=== PATIENT | female | born 1955 | race Caucasian/White ===

== ENCOUNTER 2017-05-17 16:58 | Observation (INO) ==
[2017-05-17 17:36] LABS: Basophils % 0.3 %; Eosinophils # 0.2 K/mcL (0.0-0.6); Eosinophils % 1.8 %; Hematocrit 38.6 % (35.3-44.9); Hemoglobin 13.5 g/dL (11.5-15.4); Immature Granulocytes % 0.5 % (0-4); Immature Platelets 1.9 % (1.1-6.1); Lymphocytes # 1.9 K/mcL (0.6-4.6); Lymphocytes % 20.6 %; Mean Corpuscular Hemoglobin 30.3 pg (28.0-33.3); Mean Corpuscular Volume 86.7 fL (83.0-100.0); Mean Platelet Volume 9.3 fL (9.4-12.4); Monocytes # 0.7 K/mcL (0.0-1.3); Neutrophils # 6.5 K/mcL (1.6-8.9); Platelet Count 305 K/mcL (140-400); Red Blood Count 4.45 M/mcL (3.82-4.97); Red Cell Distribution Width 11.9 % (11.5-14.5); Segmented Neutrophils % 69.8 %
--- NOTE | 2017-05-17 17:39 | Emergency Department Note ---
Disposition Clinical Impression: Chest pain Qualifiers: Chest pain type: unspecified Qualified Code(s): R07.9 - Chest pain, unspecified Disposition: Admitted As Inpatient Condition: Good Time of Disposition: 18:30 General Adult HPI - General Chief complaint: ED Chest Pain Stated complaint: High bp/CP Time Seen by Provider: 05/17/17 17:12 Source: patient Limitations: no limitations Nursing Notes Reviewed: Yes Vital Signs Reviewed: Yes - History of Present Illness HPI Narrative: 62-year-old female presented to the emergency department complaining of high blood pressure. Patient states for the past week her blood pressure has been very labile. She followed up with her primary care physician multiple times and has had multiple medication changes. She was originally on atenolol then was switched to metoprolol then switched to an ARB. Patient states a mild headache for the past week. She denies any shortness of breath or dizziness. Patient does state she had an episode of exertional chest pain in the substernal region today. She denies radiation. She denies nausea, vomiting, diaphoresis with this episode. Patient has no significant cardiac history. She has never been worked up and states her primary care physician wanted tests. Pain Scale: 0 - Related Data Allergies Allergy/AdvReac Type Severity Reaction Status Date / Time fluconazole [From Diflucan] Allergy See Verified 05/17/17 17:04 Comments sulfamethoxazole Allergy See Verified 05/17/17 17:04 [From Bactrim] Comments trimethoprim [From Bactrim] Allergy See Verified 05/17/17 17:04 Comments All systems ED: reviewed and negative except as stated. Constitutional: Denies: fever, chills, weakness Eyes: Reports: as per HPI ENT ED: Reports: as per HPI Cardiovascular: Reports: chest pain. Denies: palpitations Respiratory: Denies: cough, dyspnea, wheezes Gastrointestinal: Denies: abdominal pain, nausea, vomiting Genitourinary: Reports: as per HPI Musculoskeletal: Reports: as per HPI Integumentary: Reports: as per HPI Neurological: Reports: headache. Denies: weakness, numbness, paresthesias Psychiatric: Reports: as per HPI Endocrine: Reports: as per HPI Hematological/Lymphatic: Reports: as per HPI Allergic/Immunologic: Reports: as per HPI Past Medical History - Past Medical History Attestation: Yes The following information was validated with the patient. Medical history: Reports: hypertension Psychiatric history: Reports: anxiety - Social History Smoking Status: Former smoker Alcohol use: Reports: none Drug use: Reports: none Physical Exam - General Limitations: no limitations General appearance: alert, in no apparent distress - Head Head exam: atraumatic, normocephalic, normal inspection - Eye Eye exam: Present: normal appearance, PERRL, EOMI. Absent: scleral icterus, conjunctival injection - Chest Chest inspection: Present: normal inspection, symmetric chest wall rise. Absent : tenderness, rash - Respiratory Respiratory exam: Present: normal lung sounds bilaterally. Absent: respiratory distress, wheezes - Cardiovascular Cardiovascular exam: Present: normal rhythm, tachycardia, normal heart sounds - Abdominal Exam Abdominal exam: Present: soft, Non-Tender. Absent: distention, guarding, rebound - Extremities Exam Extremities exam: Present: normal inspection, full ROM - Neurological Exam Neurological exam: Present: alert, oriented X3 - Psychiatric Psychiatric exam: Present: normal affect, normal mood - Skin Skin exam: Present: warm, intact Course Course Narrative: 62-year-old female presenting to the emergency department complaining of hypertension and chest pain. We will perform a chest pain rule out including troponin, chest x-ray, EKG. Patient's alert and oriented 3 in the room. Patient is tachycardic at 100 bpm and hypertensive with systolic 190 and diastolic 100. Patient is otherwise stable at this time. Disposition will most likely be admission for chest pain rule out. It is pending at this time awaiting laboratory results. - Reevaluation(s) Reevaluation #1: Patient's lab work has come back within normal limits. EKG did show nonspecific ST depressions. Patient's heart scores greater than 3 therefore we will admit the patient at this time. She is chest pain-free at this time. Blood pressure now 170s systolic and 90 diastolic. Heart rate is now in the mid 90s. Patient was accepted by the hospitalist Dr. Huynh. Time: 18:30 Vital Signs Temperature 98.0 F 05/17/17 16:59 Pulse Rate 109 05/17/17 16:59 Respiratory Rate 18 05/17/17 16:59 Blood Pressure 200/120 05/17/17 16:59 O2 Sat by Pulse Oximetry 97 05/17/17 16:59 Temperature 98.0 F 05/17/17 16:59 Pulse Rate 85 05/17/17 18:14 Respiratory Rate 16 05/17/17 18:27 Blood Pressure 178/89 05/17/17 18:27 O2 Sat by Pulse Oximetry 96 05/17/17 18:14 Oxygen Delivery Oxygen Delivery Room Air Medical Decision Making - Lab Data Result diagrams: 05/17/17 17:27 05/17/17 17:27 Lab Results 05/17/17 05/17/17 05/17/17 Range/Units 17:27 17:27 17:27 WBC 9.3 (4.3-11.1) K/mcL RBC 4.45 (3.82-4.97) M/mcL Hgb 13.5 (11.5-15.4) g/dL Hct 38.6 (35.3-44.9) % MCV 86.7 (83.0-100.0) fL MCH 30.3 (28.0-33.3) pg MCHC 35.0 (31.6-35.5) g/dL RDW 11.9 (11.5-14.5) % Plt Count 305 (140-400) K/mcL MPV 9.3 L (9.4-12.4) fL Immature Gran % 0.5 (0-4) % Seg Neutrophils % 69.8 % Lymphocytes % 20.6 % Monocytes % 7.0 % Eosinophils % 1.8 % Basophils % 0.3 % Neutrophils # 6.5 (1.6-8.9) K/mcL Lymphocytes # 1.9 (0.6-4.6) K/mcL Monocytes # 0.7 (0.0-1.3) K/mcL Eosinophils # 0.2 (0.0-0.6) K/mcL Basophils # 0.0 (0.0-0.2) K/mcL Immature Plt Fraction 1.9 (1.1-6.1) % Sodium 137 (136-145) mEq/L Potassium 3.2 L (3.5-4.5) mEq/L Chloride 100 (98-109) mEq/L Carbon Dioxide 24 (19-29) mEq/L BUN 14 (7-20) mg/dL Creatinine 0.82 (0.57-1.11) mg/dL Est GFR ( Amer) > 60 (> 60) Est GFR (Non-Af Amer) > 60 (> 60) BUN/Creatinine Ratio 17 (6-26) Glucose 130 H (70-99) mg/dL Calculated Osmolality 286 (280-300) Calcium 9.4 (8.6-10.8) mg/dL Troponin I 0.01 (0-0.03) ng/mL - Radiology Data Radiology results reviewed: Yes I reviewed the patient's radiology results. Chest x-ray is unremarkable - EKG Data EKG #1 EKG attestation: Yes I reviewed and interpreted this EKG. EKG results narrative: Sinus tachycardia. 108 bpm. MA interval 204, QRS 87, QTC 393. ST depression noted in leads 2, V4, V5, V6. No previous EKG to compare to Attestation Statement - Attestation Attestation: I, Sterling Mora DO, examined this patient [id number] and my medical decision-making was reviewed with Dr. Katiuska Oconnor, Resident Physician. I agree with the documented findings, disposition and treatment plan as described except to the extent set forth below. Please see my progress notes for details. 62-year-old female presents emergency room complaint of exertional chest pressure and pain along with shortness of breath. Patient does have a heart score of 3. She also has concerning family history. No acute signs of cardiac disease at this point clinically indicated appears to be normal. Patient will be admitted for cardiac evaluation aspirin to be given on an emergency room bay currently she does not have any symptoms. Vital signs reviewed and are stable. Lungs are clear heart is regular abdomen is soft. No signs of pitting edema. See detailed documentation of physical exam, medical intervention, medical decision-making, consultation and disposition and the resident physician's note. Patient and family are both comfortable with this plan. No other concerns or issues noted during my evaluation treatment course here in the emergency room.
[2017-05-17 17:50] LABS: BUN/Creatinine Ratio 17 (6-26); Blood Urea Nitrogen 14 mg/dL (7-20); Calcium 9.4 mg/dL (8.6-10.8); Carbon Dioxide 24 mEq/L (19-29); Chloride 100 mEq/L (98-109); Glucose 130 mg/dL (70-99); Osmolality,Calculated 286 (280-300); Potassium 3.2 mEq/L (3.5-4.5); Sodium 137 mEq/L (136-145); eGFR For African Americans > 60 (> 60); eGFR For Non-African Americans > 60 (> 60)
--- NOTE | 2017-05-17 20:20 | Event Note ---
Date of Encounter: 05/17/17 Time of Encounter: 20:17 Patient seen and examined with nurse practitioner. Patient presents with hypertensive urgency. The pressure has been uncontrolled for the past week at least since she started checking her blood pressure. Systolic blood pressure ranging between 180-200. She has been complaining of headache nausea vomiting in addition to intermittent retrosternal chest pain with occasional radiation to the back. EKG without ischemic changes. We get CT scan of the head to rule out any believe, CTM development of the chest [place] toward dissection. Serial troponin. Check echocardiogram. cardiology consultation
[2017-05-17] MEDS ORDERED: *HR* LORazepam 0.5 MG TABLET PO PRN (21:08)
[2017-05-17] MEDS ORDERED: Ondansetron 4 MG/2 ML VIAL IVP PRN (21:14)
[2017-05-17] MEDS ORDERED: Naloxone 0.4 MG/ML INJ IVP PRN (21:14)
[2017-05-17] MEDS ORDERED: *HR* HYDROcodone/Acet 5/325 mg TABLET PO PRN (21:14)
[2017-05-17] MEDS ORDERED: Nitroglycerin 0.4 MG TAB.SUBL SL PRN (21:19)
--- NOTE | 2017-05-17 22:03 | Internal Med History&Physical ---
Date of Encounter: 05/17/17 Time of Encounter: 20:00 Assessment and Plan (1) Chest pain Current visit: Yes Status: Acute Pt. presents with report of intermittent chest pain for the past several years that has become progressively worse. Described as "grabbing" sensation in center chest that occurs most with being upset/anxiety or w/exertion. Relieved w /rest. Hx of HTN and anxiety. Denies previous history of cardiac event, angioplasty, or stent placement. Reports headache over the past week as well as elevated BP. Will continue patient's metoprolol, increase Cozaar from 50 mg 100 mg daily, and continue hydrochlorothiazide. Continue aspirin therapy. Echocardiogram ordered. Continuous cardiac telemetry. Initial troponin 0.01. Trend x2. Will consider stress test and cardiology consult based on echo and trended troponins. Pt. is at high risk for cardiac event based on current sx and length of time for sx, hx of HTN, and familial hx of CAD and GA. Observation. Qualifiers: Chest pain type: other chest pain Qualified Code(s): R07.89 - Other chest pain; R07.8 - Other chest pain (2) HTN (hypertension) Current visit: Yes Status: Chronic Hx of chronic HTN. Pt. reports having her HTN medication changed recently by her PCP. Pt. reports headache over the past week and elevated BP. Will continue hydrochlorothiazide, continue metoprolol 100 mg daily and given 50 mg now, and increase Cozaar from 50 mg 100 mg daily. Monitor pt. and VS. Qualifiers: Hypertension type: essential hypertension Qualified Code(s): I10 - Essential (primary) hypertension (3) GERD (gastroesophageal reflux disease) Current visit: Yes Status: Chronic Hx of chronic GERD. IVP Zofran Q8HR. IVP Protonix 40 mg daily. Qualifiers: Esophagitis presence: esophagitis presence not specified Qualified Code(s) : K21.9 - Gastro-esophageal reflux disease without esophagitis (4) Anxiety Current visit: Yes Status: Chronic Hx of chronic anxiety. Continue Zoloft. (5) DVT prophylaxis Current visit: Yes Status: Acute Heparin 5,000 units SQ Q8 for DVT prophylaxis. Internal Medicine - H&P: HPI Chief complaint: Chest pain Admitted From: Emergency Dept Plans for Post Hospital Care: Home History of present illness: Ms. De Guzman is a 62 year old female with medical hx of hypertension presents from the ED with chief complaint of chest pain that she states has been occurring on and off for years and has become progressively worse. She describes the chest pain as a "grabbing"sensation in her center chest which happens more frequently when she is upset/anxious or exerting herself, such as walking. Patient states pain subsides when she rests. Patient reports she has been switched on several medications for her hypertension recently as well as being placed on sertraline. Patient reports N/V last night but states she thinks it is from starting sertraline last night. Also reports headache. She denies any previous history of cardiac event, angioplasty, or stent placement, recent illness, fever, chills, abdominal pain, diarrhea, constipation, palpitations, changes in vision, unusual bleeding, SOB, cough, dizziness, lightheadedness, pre-syncope, or syncope. Past Med Surg Social Fam HX - Past Medical History Source: patient, old records reviewed, obtained from family Medical history: hypertension Psychiatric history: anxiety - Social History Smoking Status: Former smoker Alcohol use: none Drug use: none Current living situation: Home, With Family Activity Level: Independent ambulation Recent Out of Country Travel Within the Last 8 Weeks: No Exposure or Possible Exposure to Illness During Travel: No - Family History Father Race: Family Member Ethnicity: Non- Living Status: Age at : 89 Cause of : Metastatic cancer Hx Family Cardiac Disorders: Yes (CAD, Triple bypass) Hx Family Cancer: Yes (Prostate, colon, lung, bone) Mother Race: Family Member Ethnicity: Non- Living Status: Still Living Hx Family Cardiac Disorders: Yes (GA, Triple bypass) Hx Family Cancer: Yes (Breast) Brother Race: Family Member Ethnicity: Non- Living Status: Still Living Hx Family Medical Disorders: No Sister Race: Family Member Ethnicity: Non- Living Status: Age at : 2 Cause of : Congenital hole in heart Hx Family Cardiac Disorders: Yes (Heart defect) Internal Medicine - H&P: Meds Aspirin 81 mg PO DAILY 05/17/17 [History] LORazepam [Ativan] 0.5 mg PO HS PRN 05/17/17 [History] Losartan Potassium [Cozaar] 50 mg PO DAILY 05/17/17 [History] Metoprolol XL (24 HR) Succ [Toprol Xl] 100 mg PO DAILY 05/17/17 [History] Ranitidine HCl [Heartburn Relief] 150 mg PO 3XW 05/17/17 [History] Sertraline [Zoloft] 50 mg PO DAILY 05/17/17 [History] hydroCHLOROthiazide [Hydrochlorothiazide] 25 mg PO DAILY 05/17/17 [History] 3 Allergy/AdvReac Type Severity Reaction Status Date / Time fluconazole [From Diflucan] Allergy See Verified 05/17/17 18:48 Comments sulfamethoxazole Allergy See Verified 05/17/17 18:48 [From Bactrim] Comments trimethoprim [From Bactrim] Allergy See Verified 05/17/17 17:04 Comments All Systems PM: A 10-system review of systems was performed and is negative for pertinent findings except as documented above in the HPI. - Constitutional Constitutional: no chills, no fever(s), no night sweats - EENT Eyes: no change in vision, no discharge, no pain, no photophobia Ears: no ear discharge, no ear pain, no tinnitus Nose, mouth and throat: no dysphagia, no nasal discharge, no neck pain, no sore throat - Breasts Breasts: as per HPI - Cardiovascular Cardiovascular ROS IM: as per HPI, chest pain - Respiratory Respiratory: no cough, no dyspnea, no wheezing, no excessive phlegm production - Gastrointestinal Gastrointestinal: as per HPI, nausea, vomiting, no abdominal pain, no diarrhea, no hematemesis, no hematochezia, no melena - Genitourinary Genitourinary: no change in urinary stream, no dysuria, no flank pain, no hematuria Menstruation: as per HPI - Musculoskeletal Musculoskeletal ROS IM: no numbness, no tingling - Integumentary Integumentary IM: no rash, no unusual bruising - Neurological Neurological ROS: no confusion, no convulsions, no focal weakness, no numbness, no tingling, no tremor(s) - Psychiatric Psychiatric: as per HPI - Endocrine Endocrine IM: as per HPI - Hematologic/Lymphatic Hematologic/Lymphatic: no easy bruising - Allergic/Immunologic Allergic/Immunologic: as per HPI - Constitutional Vitals: Temp Pulse Resp BP Pulse Ox 97.9 F 94 18 161/90 96 05/17/17 20:58 05/17/17 20:58 05/17/17 20:58 05/17/17 20:58 05/17/17 20:58 General appearance: Present: cooperative, A&O X 3, pleasant, no acute distress, obese, answers questions appropriately - Head Head exam: Present: atraumatic, normal inspection, normocephalic - Eye Eye exam: Present: PERRL, conjuntiva pink, sclera anicteric Pupils: Present: PERRL - ENT ENT exam: Present: normal exam, normal external ear exam - Neck Neck exam general surgery: Present: normal inspection, supple, trachea midline. Absent: lymphadenopathy - Respiratory Respiratory exam: Present: CTAB. Absent: accessory muscle use, rales, rhonchi, wheezes - Cardiovascular Cardiovascular exam: Present: RRR, +S1, +S2. Absent: diastolic murmur, gallop, rubs, systolic murmur - GI/Abdominal GI/Abdominal exam: Present: normal bowel sounds, soft, no peritoneal signs. Absent: distended, tenderness - Rectal Rectal exam: Present: deferred - Additional comments: exam deferred. - Extremities Exam Extremities exam: Present: pedal edema, warm, radial pulses palpable and symmetrical. Absent: calf tenderness, cyanotic - Back Exam Back exam: Present: normal inspection - Neurological Exam Neurological exam: Present: alert, CN II-XII intact, oriented X3, no focal deficits. Absent: pronater drift, facial droop, speech deficit - Psychiatric Psychiatric exam: Present: normal affect, normal mood - Skin Skin exam: Present: dry, intact Internal Med - H&P Results - Labs CBC & Chem 7: 05/17/17 17:27 05/17/17 17:27 - EKG Data EKG shows normal: sinus rhythm Rate: normal - EKG Data Prior EKG available for review: yes Interpretation IM: normal EKG EKG comments: 05/17/17 22:09 EKG dated 05/17/17 17:02:35 shows sinus tachycardia with moderate ST depression. EKG dated 05/15/17 18:43:15 shows sinus rhythm and normal ECG. - Diagnostic Studies Chest x-ray Additional comments: Impressions Chest X-Ray 05/17/17 17:05 IMPRESSION: No acute process. D/ / Orlando Ceballos MD / Orlando Ceballos MD Interpreting Provider: Orlando Ceballos MD
[2017-05-17] MEDS ORDERED: Pantoprazole 40 MG VIAL IVP SCH (22:30)
[2017-05-17] MEDS: Pantoprazole 40 MG VIAL IVP SCH (22:55)
[2017-05-17] MEDS: *HR* Heparin 5,000 UNIT/ML VIAL SQ SCH (22:55)
[2017-05-17] MEDS: Metoprolol XL (24 HR) Succ 50 MG TAB.ER.24H PO SCH (22:55)
[2017-05-18 00:54] LABS: Basophils % 0.4 %; Eosinophils # 0.1 K/mcL (0.0-0.6); Eosinophils % 1.2 %; Hematocrit 36.2 % (35.3-44.9); Hemoglobin 12.7 g/dL (11.5-15.4); Immature Granulocytes % 0.4 % (0-4); Lymphocytes # 2.6 K/mcL (0.6-4.6); Lymphocytes % 25.2 %; Mean Corpuscular HGB Conc 35.1 g/dL (31.6-35.5); Mean Corpuscular Hemoglobin 30.5 pg (28.0-33.3); Mean Corpuscular Volume 86.8 fL (83.0-100.0); Mean Platelet Volume 9.6 fL (9.4-12.4); Monocytes # 0.7 K/mcL (0.0-1.3); Monocytes % 6.8 %; Neutrophils # 6.7 K/mcL (1.6-8.9); Platelet Count 284 K/mcL (140-400); Red Blood Count 4.17 M/mcL (3.82-4.97)
[2017-05-18 01:04] LABS: INR 1.3; Prothrombin Time 14.6 Seconds (9.4-12.1)
[2017-05-18 01:05] LABS: Hemoglobin A1C 5.1 %
[2017-05-18 01:06] LABS: Activated Partial Thrombo Time 32.2 Seconds (26.0-36.0)
[2017-05-18 01:11] LABS: Alanine Aminotransferase 25 Units/L (0-55); Albumin 3.4 g/dL (3.5-5.0); Albumin/Globulin Ratio 0.9 (1.1-2.2); Alkaline Phosphatase 99 Units/L (38-126); Aspartate Amino Transferase 20 Units/L (5-34); BUN/Creatinine Ratio 15 (6-26); Bilirubin,Total 0.4 mg/dL (0.2-1.2); Blood Urea Nitrogen 12 mg/dL (7-20); Calcium 9.3 mg/dL (8.6-10.8); Carbon Dioxide 27 mEq/L (19-29); Chloride 101 mEq/L (98-109); Chol/HDL Ratio 5.3 (0-4.9); Cholesterol 191 mg/dL (< 200); Globulin 3.7 g/dL (2.4-3.5); Glucose 145 mg/dL (70-99); HDL Cholesterol 36 mg/dL (40-59); LDL Cholesterol,Calculated 119 mg/dL (0-99); Osmolality,Calculated 290 (280-300); Potassium 3.5 mEq/L (3.5-4.5); Sodium 139 mEq/L (136-145); Total Protein 7.1 g/dL (6.0-8.3); Triglycerides 178 mg/dL (< 150); eGFR For African Americans > 60 (> 60); eGFR For Non-African Americans > 60 (> 60)
[2017-05-18] MEDS: *HR* Heparin 5,000 UNIT/ML VIAL SQ SCH ×3 (05:22→20:39)
[2017-05-18] MEDS ORDERED: Regadenoson 0.4 MG/5 ML SYRINGE IVP ONE (09:13)
[2017-05-18] MEDS: Metoprolol XL (24 HR) Succ 50 MG TAB.ER.24H PO SCH ×2 (09:18→14:54)
[2017-05-18] MEDS: Aspirin 81 MG TAB.CHEW PO SCH (09:22)
[2017-05-18] MEDS: hydroCHLOROthiazide 25 MG TABLET PO SCH (09:22)
[2017-05-18] MEDS: Acetaminophen 325 MG TABLET PO PRN ×2 (14:54→20:38)
--- NOTE | 2017-05-18 17:46 | Internal Med Progress Note ---
Date of Encounter: 05/18/17 Time of Encounter: 15:50 - Assessment and plan (1) Chest pain Current Visit: Yes Status: Acute Assessment and plan: Pt. presents with report of intermittent chest pain for the past several years that has become progressively worse. Described as "grabbing" coarse wheezing sensation in center chest that occurs most with being upset/anxiety or w/ exertion. Relieved w/rest. Hx of HTN and anxiety. He reports elevated blood pressure on admission. Reports headache over the past week as well as elevated BP. Will continue patient's metoprolol, increase Cozaar from 50 mg 100 mg daily , and continue diuretic and aspirin. Chest x-ray is negative. Chest CTA negative for aortic pathology, no aneurysm or dissection, high-grade stenosis of the origin of right common iliac. No acute pulmonary infiltrates. Patient does have cholelithiasis with no acute features, borderline dilated common bile duct. Patient follow-up outpatient with ultrasound of primary care. She is not having any abdominal pain, nausea, vomiting. Echocardiogram with an LVEF of 60% with mild LV DD significant valvular dysfunction. All wall segments showed normal motion. Secondary stress test tomorrow, we will most likely discharge home if stress is negative. Chest pain is most likely related to extensive history of hypertension, and /or anxiety. Continue telemetry 2 chest pain with nitroglycerin or aspirin. Stress test pending. Consider consultation with cardiology based on testing results. Qualifiers: Chest pain type: other chest pain Qualified Code(s): R07.89 - Other chest pain; R07.8 - Other chest pain (2) HTN (hypertension) Current Visit: Yes Status: Chronic Assessment and plan: Patient reports uncontrolled hypertension. Will continue to monitor and adjust medications accordingly. I have added lisinopril 5 mg by mouth daily. Patient I also discussed lifestyle modifications including diet, exercise, low-sodium diet. Qualifiers: Hypertension type: essential hypertension Qualified Code(s): I10 - Essential (primary) hypertension (3) DVT prophylaxis Current Visit: Yes Status: Acute Assessment and plan: Heparin subcutaneous daily. (4) GERD (gastroesophageal reflux disease) Current Visit: Yes Status: Chronic Assessment and plan: Chronic. Continue home medications. Qualifiers: Esophagitis presence: esophagitis presence not specified Qualified Code(s) : K21.9 - Gastro-esophageal reflux disease without esophagitis (5) Anxiety Current Visit: Yes Status: Chronic Assessment and plan: Patient reports chronic anxiety. She believes this could be potentially causing some of her chest pain. Patient takes Ativan and Zoloft. Continue medications. - Time Spent With Patient less than 15 minutes - Subjective Interval history: Patient was seen and assessed at 1550. Patient denies chest pain. She denies headache, nausea, vomiting, diaphoresis, abdominal pain, dizziness, vision changes. Patient is aware that she is a 2 day stress and be seen again tomorrow. She discussed extensive hypertension and anxiety, both of which could be affecting chest pain. - Constitutional Vitals: Temp Pulse Resp BP Pulse Ox 98.3 F 89 18 178/87 98 05/18/17 14:35 05/18/17 14:35 05/18/17 14:35 05/18/17 14:35 05/18/17 14:35 General appearance: Present: cooperative, A&O X 3, pleasant, no acute distress, obese, answers questions appropriately - Head Head exam: Present: atraumatic, normal inspection, normocephalic - Eye Eye exam: Present: normal appearance, conjuntiva pink, sclera anicteric - Neck Neck exam general surgery: Present: supple, trachea midline. Absent: lymphadenopathy - Respiratory Respiratory exam: Present: CTAB. Absent: accessory muscle use, rales, rhonchi, wheezes - Cardiovascular Cardiovascular exam: Present: RRR, +S1, +S2. Absent: diastolic murmur, gallop, rubs, systolic murmur - GI/Abdominal GI/Abdominal exam: Present: normal bowel sounds, soft. Absent: distended, tenderness - Extremities Exam Extremities exam: Present: normal capillary refill, normal inspection, warm, radial pulses palpable and symmetrical. Absent: calf tenderness, cyanotic, pedal edema, tenderness - Neurological Exam Neurological exam: Present: CN II-XII intact, oriented X3, no focal deficits, strengths equal and symetr throughout. Absent: facial droop, speech deficit - Skin Skin exam: Present: dry, intact, normal color, warm. Absent: rash Internal Medicine: Result - Labs CBC & Chem 7: 05/18/17 00:14 05/18/17 00:14 Labs: Short CBC 05/18/17 Range/Units 00:14 WBC 10.2 (4.3-11.1) K/mcL Hgb 12.7 (11.5-15.4) g/dL Hct 36.2 (35.3-44.9) % Plt Count 284 (140-400) K/mcL Neutrophils # 6.7 (1.6-8.9) K/mcL BMP 05/18/17 00:14 Sodium 139 Potassium 3.5 Chloride 101 Carbon Dioxide 27 BUN 12 Creatinine 0.82 Glucose 145 H Calcium 9.3 Cardiac Enzymes 05/18/17 05/18/17 Range/Units 00:14 05:14 Troponin I 0.01 0.00 (0-0.03) ng/mL Liver Function 05/18/17 Range/Units 00:14 Total Bilirubin 0.4 (0.2-1.2) mg/dL AST 20 (5-34) Units/L ALT 25 (0-55) Units/L Alkaline Phosphatase 99 (38-126) Units/L Albumin 3.4 L (3.5-5.0) g/dL - ABG Interpretation ABG results: PT/INR, D-dimer PT 14.6 Seconds (9.4-12.1) H 05/18/17 00:14 - Impressions Impressions Abdomen/Pelvis CTA 05/17/17 20:16 IMPRESSION: 1. No acute aortic pathology. No aneurysm or dissection. Moderate atherosclerotic plaque in the distal abdominal aorta with some borderline significant luminal narrowing distally. 2. High-grade stenosis at the origin of the right common iliac artery. No other significant inflow disease. 3. No acute pulmonary infiltrate. 4. Mild hepatic steatosis. 5. Cholelithiasis with no acute features. Borderline dilated common bile duct at 7 mm. Ultrasound correlation recommended as clinically indicated. 6. Colonic diverticulosis with no acute features. D/ / 05/18/2017 07:10:08 Jalen Hassan MD / luis felipe Interpreting Provider: Jalen Hassan MD Chest CTA 05/17/17 20:16 IMPRESSION: 1. No acute aortic pathology. No aneurysm or dissection. Moderate atherosclerotic plaque in the distal abdominal aorta with some borderline significant luminal narrowing distally. 2. High-grade stenosis at the origin of the right common iliac artery. No other significant inflow disease. 3. No acute pulmonary infiltrate. 4. Mild hepatic steatosis. 5. Cholelithiasis with no acute features. Borderline dilated common bile duct at 7 mm. Ultrasound correlation recommended as clinically indicated. 6. Colonic diverticulosis with no acute features. D/ / 05/18/2017 07:10:08 Jalen Hassan MD / luis felipe Interpreting Provider: Jalen Hassan MD Head CT 05/17/17 20:16 IMPRESSION: 1. No acute intracranial findings. 2. Nonspecific bilateral mastoid effusions. D/ / 05/17/2017 22:58:23 Fransico Hansen MD / [email or web address] Interpreting Provider: Fransico Hansen MD Echocardiogram 05/18/17 21:17 Impressions: LVEF 60%. Mild left ventricular diastolic dysfunction. Normal right ventricular structure and function. No significant valvular dysfunction. No pulmonary hypertension. Left Ventricular Wall Motion: Rest Echo Findings All wall segments showed normal motion. Findings: Study Quality * Technically adequate exam. ECG Findings * Normal sinus rhythm. Left Ventricle * LVEF 60%. * Normal LV chamber size, wall thickness and function. * Mild left ventricular diastolic dysfunction. Right Ventricle * Normal right ventricular structure and function. Left Atrium * Normal left atrial size. Right Atrium * Normal right atrial size. Aortic Valve * No aortic regurgitation. * Trileaflet aortic valve. * No aortic stenosis. Mitral Valve * Normal mitral valve structure. * No mitral stenosis. * Trace mitral regurgitation. Tricuspid Valve * Tricuspid valve not well visualized. * No tricuspid regurgitation. * Estimated RA pressure is 3 mmHg. * Estimated RVSP is 19 mmHg. * No pulmonary hypertension. Pulmonic Valve * Pulmonic valve is not well visualized. * No pulmonic stenosis. * No pulmonic regurgitation. Pulmonary Artery * Pulmonary artery not well visualized. Aorta * Normally sized aortic root. Pericardium * There is no pericardial effusion present. Interatrial Septum * No evidence of PFO by color Doppler. IVC * Normal IVC dimensions and inspiratory collapse. Consult Discharge Plan - Plan Referrals: Nimco Johnson CNP [Primary Care Provider] -
--- NOTE | 2017-05-18 18:22 | Electrocardiograph Report ---
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
[2017-05-18] MEDS: Pantoprazole 40 MG VIAL IVP SCH (20:39)
[2017-05-19 05:55] LABS: Basophils % 0.4 %; Eosinophils # 0.4 K/mcL (0.0-0.6); Hematocrit 35.4 % (35.3-44.9); Immature Granulocytes % 0.5 % (0-4); Lymphocytes # 3.1 K/mcL (0.6-4.6); Lymphocytes % 40.2 %; Mean Corpuscular HGB Conc 33.9 g/dL (31.6-35.5); Mean Corpuscular Hemoglobin 29.9 pg (28.0-33.3); Mean Corpuscular Volume 88.1 fL (83.0-100.0); Mean Platelet Volume 9.3 fL (9.4-12.4); Monocytes # 0.7 K/mcL (0.0-1.3); Monocytes % 8.8 %; Neutrophils # 3.5 K/mcL (1.6-8.9); Platelet Count 252 K/mcL (140-400); Red Blood Count 4.02 M/mcL (3.82-4.97); Red Cell Distribution Width 12.3 % (11.5-14.5); Segmented Neutrophils % 45.1 %
[2017-05-19] MEDS: *HR* Heparin 5,000 UNIT/ML VIAL SQ SCH (06:14)
[2017-05-19 06:30] LABS: Alanine Aminotransferase 21 Units/L (0-55); Albumin 3.3 g/dL (3.5-5.0); Alkaline Phosphatase 83 Units/L (38-126); Aspartate Amino Transferase 18 Units/L (5-34); BUN/Creatinine Ratio 19 (6-26); Blood Urea Nitrogen 16 mg/dL (7-20); Calcium 8.7 mg/dL (8.6-10.8); Carbon Dioxide 28 mEq/L (19-29); Chloride 100 mEq/L (98-109); Globulin 3.4 g/dL (2.4-3.5); Glucose 109 mg/dL (70-99); Osmolality,Calculated 282 (280-300); Potassium 3.6 mEq/L (3.5-4.5); Sodium 135 mEq/L (136-145); Total Protein 6.7 g/dL (6.0-8.3); eGFR For African Americans > 60 (> 60); eGFR For Non-African Americans > 60 (> 60)
[2017-05-19 06:31] LABS: Bilirubin,Total 0.8 mg/dL (0.2-1.2)
[2017-05-19] MEDS: Aspirin 81 MG TAB.CHEW PO SCH (08:09)
[2017-05-19] MEDS: hydroCHLOROthiazide 25 MG TABLET PO SCH (08:09)
[2017-05-19] MEDS: Metoprolol XL (24 HR) Succ 50 MG TAB.ER.24H PO SCH (08:09)
[2017-05-19] MEDS ORDERED: Famotidine 20 MG TABLET PO SCH (09:00)
[2017-05-19 10:31] VITALS: BP 125/66
--- NOTE | 2017-05-19 12:06 | Discharge Summary ---
Date of Encounter: 05/19/17 Time of Encounter: 10:15 - Discharge Diagnosis (1) Chest pain Priority: Primary Status: Acute Comments: Pt. presents with report of intermittent chest pain for the past several years that has become progressively worse. Described as "grabbing" coarse wheezing sensation in center chest that occurs most with being upset/anxiety or w/ exertion. Relieved w/rest. Hx of HTN and anxiety. He reports elevated blood pressure on admission. Reports headache over the past week as well as elevated BP. Will continue patient's metoprolol, increase Cozaar from 50 mg 100 mg daily , and continue diuretic and aspirin. The chest pain is not reproducible with palpation, deep inspiration, or movement. No tenderness over the epigastric area. Chest x-ray is negative. Chest CTA negative for aortic pathology, no aneurysm or dissection, high-grade stenosis of the origin of right common iliac. No acute pulmonary infiltrates. Patient does have cholelithiasis with no acute features, borderline dilated common bile duct. Patient follow-up outpatient with ultrasound of primary care. She is not having any abdominal pain, nausea, vomiting. Echocardiogram with an LVEF of 60% with mild LV DD significant valvular dysfunction. All wall segments showed normal motion. Stress test was negative for ischemia or infarct, gated EF is greater than 70%. Chest pain is most likely related to extensive history of hypertension, and /or anxiety. I will send patient home with lisinopril 10 mg by mouth daily as well as continue her other normal home medications. Qualifiers: Chest pain type: other chest pain Qualified Code(s): R07.89 - Other chest pain; R07.8 - Other chest pain (2) HTN (hypertension) Priority: Secondary Status: Chronic Comments: Patient reports uncontrolled hypertension. Will continue to monitor and adjust medications accordingly. I initially added lisinopril 5 mg by mouth daily, did not see significant change in blood pressure so increased to 10 mg daily. Blood pressure responded well and is at goal. Patient and I also discussed lifestyle modifications including diet, exercise, low-sodium diet. Qualifiers: Hypertension type: essential hypertension Qualified Code(s): I10 - Essential (primary) hypertension (3) DVT prophylaxis Priority: Secondary Status: Acute Comments: Heparin subcutaneous daily. (4) GERD (gastroesophageal reflux disease) Priority: Secondary Status: Chronic Comments: Chronic. Continue medications. Qualifiers: Esophagitis presence: esophagitis presence not specified Qualified Code(s) : K21.9 - Gastro-esophageal reflux disease without esophagitis (5) Anxiety Priority: Secondary Status: Chronic Comments: Patient reports chronic anxiety that could potentially be causing some of her chest pain. She will continue her Ativan and Zoloft at home. She will follow up with primary care for continued evaluation and for any possible necessary medication changes or adjustments. - Discharge Medications Prescriptions: Lisinopril [Zestril] 10 mg PO DAILY #30 tablet Home Medications: Aspirin 81 mg PO DAILY 05/17/17 [History] LORazepam [Ativan] 0.5 mg PO HS PRN 05/17/17 [History] Losartan Potassium [Cozaar] 50 mg PO DAILY 05/17/17 [History] Metoprolol XL (24 HR) Succ [Toprol Xl] 100 mg PO DAILY 05/17/17 [History] Ranitidine HCl [Heartburn Relief] 150 mg PO 3XW 05/17/17 [History] Sertraline [Zoloft] 50 mg PO DAILY 05/17/17 [History] hydroCHLOROthiazide [Hydrochlorothiazide] 25 mg PO DAILY 05/17/17 [History] Lisinopril [Zestril] 10 mg PO DAILY #30 tablet 05/19/17 [Rx] Allergies/Adverse Reactions: 3 Allergy/AdvReac Type Severity Reaction Status Date / Time fluconazole [From Diflucan] Allergy See Verified 05/17/17 18:48 Comments sulfamethoxazole Allergy See Verified 05/17/17 18:48 [From Bactrim] Comments trimethoprim [From Bactrim] Allergy See Verified 05/17/17 17:04 Comments Procedures/tests Complete & Pending: Procedures Performed prior 72 hours Category Date Time Status CT head/brain wo con [CT] Stat Cat Scan 05/17/17 20:16 Completed CTA Abdomen/Pelvis [CT angio abdomen pelvis] [CT] Stat Cat Scan 05/17/17 20: 16 Completed CTA chest [CT angio chest] [CT] Stat Cat Scan 05/17/17 20:16 Completed NM mai perf SPECT multi [NM] Routine Exams 05/18/17 10:02 Taken ECG 12 lead ECG [ECG] Routine Y 05/17/17 18:43 Completed EV echocardiogram Routine Y 05/18/17 21:17 Completed SP pharm nuclear stress Routine Y 05/18/17 08:05 Completed Date of admission: 05/17/17 18:19 Primary care physician: Nimco Johnson CNP Consults: 05/17/17 21:16 Consult to [employer] [CONS] Routine Reason for SW Consult: Please assess patient for home needs for post- discharge planning. Discharging clinician: Caitie Heath Anticipated date of discharge: 05/19/17 - Patient Status Disposition: Home, Self-Care Condition: Good Functional capacity at discharge: independent ambulation Overall status at discharge: patient is back to baseline - Discharge Instructions Follow Up With: Nimco Johnson CNP [Primary Care Provider] - Additional Instructions: Please follow-up with her primary care provider in the next 7-10 days for a follow-up visit. Continue her normal home medications. Start lisinopril 10 mg daily tomorrow. Return to the emergency department as needed for any other problems or concerns , or if symptoms return or worsen. Low sodium diet, read labels and limit your sodium to around 1000mg/day. Interval History: Please see assessment and plan for hospital course Hospital course: Ms. De Guzman is a 62 year old female - Time Spent with Patient Total time spent providing and/or coordinating discharge services: - Constitutional Vitals: Temp Pulse Resp BP Pulse Ox 98 F 80 18 125/66 97 05/19/17 10:30 05/19/17 10:30 05/19/17 10:30 05/19/17 10:30 05/19/17 10:30 General appearance: Present: cooperative, A&O X 3, pleasant, no acute distress, obese, answers questions appropriately - Head Head exam: Present: atraumatic, normal inspection, normocephalic - Eye Eye exam: Present: normal appearance, conjuntiva pink, sclera anicteric - Neck Neck exam general surgery: Present: normal inspection, supple, trachea midline. Absent: lymphadenopathy, tenderness - Respiratory Respiratory exam: Present: CTAB. Absent: accessory muscle use, rales, rhonchi, wheezes - Cardiovascular Cardiovascular exam: Present: RRR, +S1, +S2. Absent: diastolic murmur, gallop, rubs, systolic murmur - GI/Abdominal GI/Abdominal exam: Present: normal bowel sounds, soft. Absent: distended, hepatomegaly, tenderness - Extremities Exam Extremities exam: Present: normal capillary refill, warm, radial pulses palpable and symmetrical. Absent: calf tenderness, cyanotic, pedal edema, tenderness - Neurological Exam Neurological exam: Present: alert, oriented X3, no focal deficits. Absent: altered, facial droop, speech deficit - Skin Skin exam: Present: dry, intact, normal color, warm. Absent: rash
--- NOTE | 2017-05-19 16:26 | Electrocardiograph Report ---
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
== END 2017-05-19 13:41 | disposition home or self-care (01) ==
LOC: EMEROO 16:58 → 3BNU 16:58
PROVIDERS: ADMIT Internal Medicine; ATTEND Registered Nurse

== ENCOUNTER 2017-10-06 07:33 | Observation (INO) ==
--- NOTE | 2017-10-06 08:01 | Emergency Department Note ---
Disposition Clinical Impression: Chest pain, rule out acute myocardial infarction, Epigastric abdominal pain Disposition: Admitted As Inpatient Condition: Fair Referrals: Nimco Johnson CNP [Primary Care Provider] - Forms: ED Satisfaction Letter Time of Disposition: 09:30 Chest Pain HPI - General Chief Complaint: ED Chest Pain Stated Complaint: CP Time Seen by Provider: 10/06/17 07:44 Source: patient Limitations: no limitations Vital Signs Reviewed: Yes Nursing Notes Reviewed: Yes - History of Present Illness HPI Narrative: Nontoxic-appearing 62-year-old female presents for evaluation of intermittent substernal chest pain that began yesterday. He she states this pain does radiate to the bilateral shoulders when present. She states "I can usually breathe through it but it is getting harder and harder to do so". She denies any pleuritic component to this chest pain. She denies any cough, sputum, or hemoptysis production. She denies any fever or chills. She denies any shortness of breath. She does complain of some episodic epigastric abdominal pain but denies any nausea, vomiting, or diarrhea. She states that she had a similar episode such as this this past May. At that time, she was hospitalized and had a cardiac workup performed including a stress test. Pt complaint: chest pain Onset (ago): day(s) (Yesterday afternoon) Duration: intermittent, now resolved Pain Location: substernal Severity scale (1-10): 7 Quality: other (Unable to describe) Pain Radiation: other (Shoulders) Improves with: rest Worsens with: nothing Associated symptoms: Reports: nausea. Denies: vomiting, diaphoresis, dyspnea, palpitations, fever, cough Treatments prior to arrival chest pain: none - Related Data Home Medications Medication Instructions Recorded Confirmed Aspirin 81 mg PO DAILY 05/17/17 10/06/17 LORazepam [Ativan] 0.5 mg PO HS PRN 05/17/17 10/06/17 Losartan Potassium [Cozaar] 50 mg PO DAILY 05/17/17 10/06/17 Metoprolol XL (24 HR) Succ [Toprol 100 mg PO DAILY 05/17/17 10/06/17 Xl] Ranitidine HCl [Heartburn Relief] 150 mg PO 3XW 05/17/17 10/06/17 Sertraline [Zoloft] 50 mg PO DAILY 05/17/17 10/06/17 hydroCHLOROthiazide 25 mg PO DAILY 05/17/17 10/06/17 [Hydrochlorothiazide] Allergies Allergy/AdvReac Type Severity Reaction Status Date / Time fluconazole [From Diflucan] Allergy See Verified 10/06/17 09:22 Comments sulfamethoxazole Allergy See Verified 10/06/17 09:22 [From Bactrim] Comments trimethoprim [From Bactrim] Allergy See Verified 10/06/17 09:22 Comments Constitutional: Denies: fever, chills, weakness, weight change Eyes: Denies: eye pain, eye discharge, vision change ENT ED: Denies: ear pain, throat pain, dental pain, hearing loss, epistaxis, congestion, dysphagia Cardiovascular: Reports: as per HPI, chest pain. Denies: palpitations, dyspnea on exertion, edema, syncope Respiratory: Denies: cough, dyspnea, wheezes, hemoptysis, stridor Gastrointestinal: Reports: as per HPI, abdominal pain (Epigastric). Denies: nausea, vomiting, diarrhea, constipation, hematemesis, melena, hematochezia Genitourinary: Denies: dysuria, frequency, hematuria, discharge Musculoskeletal: Denies: back pain, neck pain, arthralgia, myalgia Integumentary: Denies: rash, abrasion, lesions Neurological: Denies: headache, weakness, numbness, paresthesias, confusion, abnormal gait, vertigo Psychiatric: Denies: anxiety, depression, suicidal thoughts, homicidal thoughts , auditory hallucinations, visual hallucinations Endocrine: Denies: fatigue Hematological/Lymphatic: Denies: easy bleeding, easy bruising Allergic/Immunologic: Denies: facial swelling, urticaria Chest Pain PMH - Past Medical History Medical history: Reports: hypertension Surgical history: Reports: Psychiatric history: Reports: anxiety [employer]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 Absent: nystagmus - ENT ENT exam: mucous membranes moist - Neck Neck exam: Present: normal inspection, full ROM, trachea midline - Chest Chest inspection: Present: normal inspection, symmetric chest wall rise - Respiratory Respiratory exam: Present: normal lung sounds bilaterally. Absent: respiratory distress, wheezes, stridor, accessory muscle use, prolonged expiratory phase - Cardiovascular Cardiovascular exam: Present: regular rate, normal rhythm, normal heart sounds - Abdominal Exam Abdominal exam: Present: soft, Non-Tender, normal bowel sounds. Absent: distention, guarding, rebound, rigidity, Erazo's sign, mass, pulsatile mass - Extremities Exam Extremities exam: Present: normal inspection, full ROM. Absent: tenderness, pedal edema - Neurological Exam Neurological exam: Present: alert, oriented X3 - Psychiatric Psychiatric exam: Present: normal affect, normal mood - Skin Skin exam: Present: warm, dry, intact, normal color. Absent: rash Course Course Narrative: I discussed this patient's case with Dr. Orta. Dr. Orta has had a [id number] evaluation with the patient and agrees with admission to the hospital service for chest pain rule out. He also suggests consultation with on -call gastroenterology regarding the incidental finding of a common bile duct dilation without intraductal abnormality. 0915: I spoke with Dr. Zamarripa, gastroenterology on-call. Dr. Zamarripa states he will be happy to consult with the patient was using the patient unit. 0925: I spoke with Dr. Olivier of the hospitalist service who has agreed to accept the patient for admission to the hospitalist care. Vital Signs Temperature 98.8 F 10/06/17 07:37 Pulse Rate 69 10/06/17 07:37 Respiratory Rate 16 10/06/17 07:37 Blood Pressure 140/83 10/06/17 07:37 O2 Sat by Pulse Oximetry 99 10/06/17 07:37 Temperature 98.8 F 10/06/17 07:37 Pulse Rate 69 10/06/17 07:37 Respiratory Rate 16 10/06/17 07:37 Blood Pressure 140/83 10/06/17 07:37 O2 Sat by Pulse Oximetry 99 10/06/17 07:37 Oxygen Delivery Oxygen Delivery Room Air Chest Pain - MDM Narrative Medical decision making narrative: Chest x-ray shows minimal focal left basilar airspace disease likely representing atelectasis. Radiologist reads as pneumonia cannot be excluded. I feel atelectasis is more likely. The patient has no complaints of shortness of breath or cough. - Medical Records Medical records reviewed: Yes I reviewed the patient's medical records. - Lab Data Lab results reviewed: Yes I reviewed the patient's lab results. Lab results narrative: Lab Results 10/06/17 10/06/17 10/06/17 Range/Units 07:52 07:52 07:52 WBC 7.5 (4.3-11.1) K/mcL RBC 4.52 (3.82-4.97) M/mcL Hgb 13.5 (11.5-15.4) g/dL Hct 38.7 (35.3-44.9) % MCV 85.6 (83.0-100.0) fL MCH 29.9 (28.0-33.3) pg MCHC 34.9 (31.6-35.5) g/dL RDW 12.3 (11.5-14.5) % Plt Count 283 (140-400) K/mcL MPV 9.3 L (9.4-12.4) fL Immature Gran % 0.3 (0-4) % Seg Neutrophils % 65.1 % Lymphocytes % 23.5 % Monocytes % 8.9 % Eosinophils % 1.7 % Basophils % 0.5 % Neutrophils # 4.9 (1.6-8.9) K/mcL Lymphocytes # 1.8 (0.6-4.6) K/mcL Monocytes # 0.7 (0.0-1.3) K/mcL Eosinophils # 0.1 (0.0-0.6) K/mcL Basophils # 0.0 (0.0-0.2) K/mcL PT 13.8 H (9.4-12.1) Seconds INR 1.3 APTT 32.8 (26.0-36.0) Seconds Sodium 131 L (136-145) mEq/L Potassium 3.8 (3.5-5.1) mEq/L Chloride 97 L (98-107) mEq/L Carbon Dioxide 25 (23-29) mEq/L BUN 13 (8-23) mg/dL Creatinine 0.75 (0.60-1.20) mg/dL Est GFR ( Amer) > 60 (> 60) Est GFR (Non-Af Amer) > 60 (> 60) BUN/Creatinine Ratio 17 (6-26) Glucose 116 H (70-105) mg/dL Calculated Osmolality 273 L (280-300) Calcium 9.3 (8.6-10.3) mg/dL Magnesium 2.0 (1.6-2.6) mg/dL Total Bilirubin 0.6 (0.3-1.0) mg/dL Direct Bilirubin 0.1 (0.0-0.2) mg/dL AST 18 (13-39) Units/L ALT 20 (7-52) Units/L Alkaline Phosphatase 88 (34-104) Units/L Troponin I < 0.03 (< 0.04) ng/mL Serum Total Protein 7.5 (6.4-8.9) g/dL Albumin 4.4 (3.5-5.7) g/dL Globulin 3.1 (2.4-3.5) g/dL Albumin/Globulin Ratio 1.4 (1.1-2.2) Lipase 21 (11-82) Units/L Result diagrams: 10/06/17 07:52 10/06/17 07:52 Lab Results 10/06/17 10/06/17 10/06/17 Range/Units 07:52 07:52 07:52 WBC 7.5 (4.3-11.1) K/mcL RBC 4.52 (3.82-4.97) M/mcL Hgb 13.5 (11.5-15.4) g/dL Hct 38.7 (35.3-44.9) % MCV 85.6 (83.0-100.0) fL MCH 29.9 (28.0-33.3) pg MCHC 34.9 (31.6-35.5) g/dL RDW 12.3 (11.5-14.5) % Plt Count 283 (140-400) K/mcL MPV 9.3 L (9.4-12.4) fL Immature Gran % 0.3 (0-4) % Seg Neutrophils % 65.1 % Lymphocytes % 23.5 % Monocytes % 8.9 % Eosinophils % 1.7 % Basophils % 0.5 % Neutrophils # 4.9 (1.6-8.9) K/mcL Lymphocytes # 1.8 (0.6-4.6) K/mcL Monocytes # 0.7 (0.0-1.3) K/mcL Eosinophils # 0.1 (0.0-0.6) K/mcL Basophils # 0.0 (0.0-0.2) K/mcL PT 13.8 H (9.4-12.1) Seconds INR 1.3 APTT 32.8 (26.0-36.0) Seconds Sodium 131 L (136-145) mEq/L Potassium 3.8 (3.5-5.1) mEq/L Chloride 97 L (98-107) mEq/L Carbon Dioxide 25 (23-29) mEq/L BUN 13 (8-23) mg/dL Creatinine 0.75 (0.60-1.20) mg/dL Est GFR ( Amer) > 60 (> 60) Est GFR (Non-Af Amer) > 60 (> 60) BUN/Creatinine Ratio 17 (6-26) Glucose 116 H (70-105) mg/dL Calculated Osmolality 273 L (280-300) Calcium 9.3 (8.6-10.3) mg/dL Magnesium 2.0 (1.6-2.6) mg/dL Total Bilirubin 0.6 (0.3-1.0) mg/dL Direct Bilirubin 0.1 (0.0-0.2) mg/dL AST 18 (13-39) Units/L ALT 20 (7-52) Units/L Alkaline Phosphatase 88 (34-104) Units/L Troponin I < 0.03 (< 0.04) ng/mL Serum Total Protein 7.5 (6.4-8.9) g/dL Albumin 4.4 (3.5-5.7) g/dL Globulin 3.1 (2.4-3.5) g/dL Albumin/Globulin Ratio 1.4 (1.1-2.2) Lipase 21 (11-82) Units/L - Radiology Data Radiology results reviewed: Yes I reviewed the patient's radiology results. Chest X-Ray 10/06/17 07:42 IMPRESSION: Minimal focal left basilar airspace disease likely representing atelectasis, though pneumonia cannot be excluded. D/ / Jalen Dick MD / Jalen Dick MD Interpreting Provider: Jalen Dick MD Gallbladder Ultrasound 10/06/17 07:57 IMPRESSION: Cholelithiasis without evidence for acute cholecystitis. If there is persistent clinical concern, consider nuclear medicine study. Distention of common bile duct measuring 0.9 cm without intraductal abnormality identified. Clinical and laboratory correlation suggested, and if there is concern for biliary obstruction, consider MRI/MRCP. Diffuse fatty infiltration of the liver. D/ / 10/06/2017 08:46:46 New Michel MD / debi Interpreting Provider: New Michel MD - EKG Data EKG attestation: Yes I reviewed and interpreted this EKG. EKG results narrative: EKG reviewed by Dr. Orta as well. EKG reads as a sinus rhythm with first- degree AV block at a rate of 68 bpm. NV interval 2-4, QRS duration 88, QT/QTc interval 370/388. Isolated T-wave inversions are noted in lead V3. This is a new finding when compared to an EKG dated from 05/17/17.
[2017-10-06 08:06] LABS: Eosinophils % 1.7 %; Hematocrit 38.7 % (35.3-44.9); Hemoglobin 13.5 g/dL (11.5-15.4); Immature Granulocytes % 0.3 % (0-4); Lymphocytes % 23.5 %; Mean Corpuscular HGB Conc 34.9 g/dL (31.6-35.5); Mean Corpuscular Hemoglobin 29.9 pg (28.0-33.3); Mean Corpuscular Volume 85.6 fL (83.0-100.0); Mean Platelet Volume 9.3 fL (9.4-12.4); Monocytes % 8.9 %; Platelet Count 283 K/mcL (140-400); Red Blood Count 4.52 M/mcL (3.82-4.97); Red Cell Distribution Width 12.3 % (11.5-14.5); Segmented Neutrophils % 65.1 %
[2017-10-06 08:07] LABS: Basophils % 0.5 %; Eosinophils # 0.1 K/mcL (0.0-0.6); Lymphocytes # 1.8 K/mcL (0.6-4.6); Monocytes # 0.7 K/mcL (0.0-1.3); Neutrophils # 4.9 K/mcL (1.6-8.9)
[2017-10-06 08:19] LABS: INR 1.3; Prothrombin Time 13.8 Seconds (9.4-12.1)
[2017-10-06 08:22] LABS: Activated Partial Thrombo Time 32.8 Seconds (26.0-36.0)
[2017-10-06 08:28] LABS: Alanine Aminotransferase 20 Units/L (7-52); Albumin 4.4 g/dL (3.5-5.7); Albumin/Globulin Ratio 1.4 (1.1-2.2); Alkaline Phosphatase 88 Units/L (34-104); Aspartate Amino Transferase 18 Units/L (13-39); BUN/Creatinine Ratio 17 (6-26); Bilirubin,Total 0.6 mg/dL (0.3-1.0); Blood Urea Nitrogen 13 mg/dL (8-23); Calcium 9.3 mg/dL (8.6-10.3); Carbon Dioxide 25 mEq/L (23-29); Chloride 97 mEq/L (98-107); Globulin 3.1 g/dL (2.4-3.5); Glucose 116 mg/dL (70-105); Lipase 21 Units/L (11-82); Osmolality,Calculated 273 (280-300); Potassium 3.8 mEq/L (3.5-5.1); Sodium 131 mEq/L (136-145); Total Protein 7.5 g/dL (6.4-8.9); Troponin I < 0.03 ng/mL (< 0.04); eGFR For African Americans > 60 (> 60); eGFR For Non-African Americans > 60 (> 60)
[2017-10-06 09:11] LABS: Bilirubin,Direct 0.1 mg/dL (0.0-0.2)
--- NOTE | 2017-10-06 09:20 | Emergency Department Note ---
START Narrative - START START: I examined this patient and my medical decision-making was reviewed with the HORSE STUD WORKER/PA/Advanced Practice Nurse/Resident Physician. I agree with the documented findings, disposition and treatment plan as described except to the extent set forth below. I did see the patient is spoke with an examine her and her lungs are clear with equal breath sounds heart is regular without murmur. She does have a T-wave inversion in lead V3 which is new compared to previous EKG, exertional chest pain, radiation to both shoulders will be admitted for further cardiac evaluation. Her liver enzymes are normal and a gallbladder ultrasound did show some dilation of the duct without evidence of a gallstone and this may be a incidental finding. GI will be consulted. [id number]
[2017-10-06] MEDS ORDERED: Aspirin 81 MG TAB.CHEW PO ONE (09:30)
--- NOTE | 2017-10-06 10:12 | Gastroenterology Consult Note ---
<Judi Velez - Last Filed: 10/06/17 10:08> Date of Encounter: 10/06/17 Time of Encounter: 10:00 - Assessment and plan (1) Epigastric abdominal pain Status: Acute Assessment and plan: GB us showed cholelithiasis and CBD distention 0.9 cm. Will order MRCP. LFTs are wnl and pain is improved at this time. She may need ERCP vs surgical consult if persistant symptoms. (2) GERD (gastroesophageal reflux disease) Status: Chronic Assessment and plan: continue PPI Qualifiers: Esophagitis presence: esophagitis presence not specified Qualified Code(s) : K21.9 - Gastro-esophageal reflux disease without esophagitis - Time Spent With Patient Total time spent is greater than 50% in coordination of care (as documented) at patient's floor/unit and/or counseling patient: GI History of Present Illness - Data of Consult Patient: new to practice Consult date: 10/06/17 - Consult Narrative Reason for consult: epigastric pain, CBD distention on ultrasound History of present illness: Ms De Guzman is a 62 year old female with a pmhx of HTN and anxiety. She presents with intermittent substernal chest pain that began yesterday. She states pain radiates across both sides of her chest and into her back. She denies nausea, vomiting, diarrhea, constipation, bloody or tarry stools. She states pain comes and goes and she can "usually breathe through it but it is getting harder and harder to do so". She states she took 300 mg ranitidine this morning with some relief. She denies any cough, sputum, or hemoptysis production. She denies any fever or chills. She denies any shortness of breath. She states that she had a similar episode such as this this past May. At that time, she was hospitalized and had a negative cardiac workup including a stress test. GB ultrasound was done which showed Cholelithiasis without evidence for acute cholecystitis. Distention of common bile duct measuring 0.9 cm without intraductal abnormality identified. Diffuse fatty infiltration of the liver. Labs reviewed and LFTs are normal. Colonoscopy: denies EGD: denies NSAIDS/ASA: 81 mg asa Anticoagulants: denies Past Med Surg Social Fam HX - Past Medical History Medical history: hypertension Psychiatric history: anxiety - Past Surgical History Surgical History: - Social History Smoking Status: Former smoker Alcohol use: none Drug use: none - Family History Father Living Status: Hx Family Cardiac Disorders: Yes (CABG) Hx Family Respiratory Disorders: No Hx Family Cancer: Yes (Prostate, lung, bone, colon) Hx Family GI Disorders: No Hx Family Endocrine Disorder: No Hx Family Neuromuscular Disorders: No Hx Family Neurologic Disorders: No Hx Family HEENT Disorders: No Hx Family Autoimmune Disorders: No Mother Family Member Ethnicity: Non- Living Status: Still Living Hx Family Cardiac Disorders: Yes ([place], Triple bypass) Hx Family Cancer: Yes (Breast) Brother Family Member Ethnicity: Non- Living Status: Still Living Sister Family Member Ethnicity: Non- Living Status: Hx Family Cardiac Disorders: Yes (Heart defect) Review of Systems: GI: as per [place] GENERAL: denies fever or chills EYES: denies yellow discoloration ENT: denies pain with swallowing or difficulty swallowing CARDIO: see HPI RESP: No Shortness of breath with exertion : denies change in color of urine NEURO: denies any weakness HEME: Denies any bruising MS: denies joint pain, joint swelling or back pain. DERM: denies rash or itching PSYCH: history of anxiety - Constitutional Vitals: Temp Pulse Resp BP Pulse Ox 98.8 F 64 16 143/80 98 10/06/17 07:37 10/06/17 09:30 10/06/17 09:30 10/06/17 09:30 10/06/17 09:30 Exam: CONSTITUTIONAL:~alert, no acute distress.~HEAD:~normocephalic.~EYES:~no jaundice.~NECK:~no obvious swelling.~HEART:~regular rate and rhythm, no murmurs. ~LUNGS:~bilateral good air entry.~ABDOMEN:~non distended, soft, non tender, no masses palpable, no organomegaly.~RECTAL EXAM:~Deferred.~EXTREMITIES:~no clubbing, cyanosis or edema.~SKIN:~no stigmata of chronic liver disease.~ NEUROLOGIC:~no obvious focal defect.~~~~ Results - Labs CBC & Chem 7: 10/06/17 07:52 10/06/17 07:52 Labs: Last Result Calcium 9.3 mg/dL (8.6-10.3) 10/06/17 07:52 Troponin I < 0.03 ng/mL (< 0.04) 10/06/17 07:52 Entire Visit Hgb 13.5 g/dL (11.5-15.4) 10/06/17 07:52 Hct 38.7 % (35.3-44.9) 10/06/17 07:52 PT 13.8 Seconds (9.4-12.1) H 10/06/17 07:52 Total Bilirubin 0.6 mg/dL (0.3-1.0) 10/06/17 07:52 AST 18 Units/L (13-39) 10/06/17 07:52 ALT 20 Units/L (7-52) 10/06/17 07:52 Lipase 21 Units/L (11-82) 10/06/17 07:52 - ABG ABG results: PT/INR, D-dimer PT 13.8 Seconds (9.4-12.1) H 10/06/17 07:52 - Impressions Impressions Chest X-Ray 10/06/17 07:42 IMPRESSION: Minimal focal left basilar airspace disease likely representing atelectasis, though pneumonia cannot be excluded. D/ / Jalen Dick MD / Jalen Dick MD Interpreting Provider: Jalen Dick MD Gallbladder Ultrasound 10/06/17 07:57 IMPRESSION: Cholelithiasis without evidence for acute cholecystitis. If there is persistent clinical concern, consider nuclear medicine study. Distention of common bile duct measuring 0.9 cm without intraductal abnormality identified. Clinical and laboratory correlation suggested, and if there is concern for biliary obstruction, consider MRI/MRCP. Diffuse fatty infiltration of the liver. D/ / 10/06/2017 08:46:46 New Michel MD / debi Interpreting Provider: New Michel MD Consult Discharge Plan - Plan Referrals: Nimco Johnson SQL SERVER DBA [Primary Care Provider] - Prescriptions: OxyCODONE/APAP 7.5/325 [Percocet 7.5/325 MG] 1 each PO Q8H PRN 5 Days #15 tablet PRN Reason: Pain <Dallin,Tony - Last Filed: 10/09/17 13:03> Date of Encounter: 10/06/17 - Time Spent With Patient Total time spent is greater than 50% in coordination of care (as documented) at patient's floor/unit and/or counseling patient: GI History of Present Illness - Data of Consult Requesting Physician: Mani Hunter MD - Consult Narrative History of present illness: Ms. De Guzman is a 62 year old female - Constitutional Vitals: Temp Pulse Resp BP Pulse Ox 97.8 F 76 18 110/70 97 10/08/17 14:00 10/08/17 14:00 10/08/17 14:00 10/08/17 14:00 10/08/17 14:00 Results - Labs CBC & Chem 7: 10/08/17 07:57 10/08/17 07:57 Labs: Last Result Calcium 9.0 mg/dL (8.6-10.3) 10/08/17 07:57 Troponin I < 0.03 ng/mL (< 0.04) 10/06/17 22:52 Triglycerides 133 mg/dL (< 150) 10/07/17 04:50 Entire Visit Hgb 12.4 g/dL (11.5-15.4) 10/08/17 07:57 Hct 35.9 % (35.3-44.9) 10/08/17 07:57 PT 13.8 Seconds (9.4-12.1) H 10/06/17 07:52 Total Bilirubin 0.6 mg/dL (0.3-1.0) 10/06/17 07:52 AST 18 Units/L (13-39) 10/06/17 07:52 ALT 20 Units/L (7-52) 10/06/17 07:52 Lipase 21 Units/L (11-82) 10/06/17 07:52 - ABG ABG results: PT/INR, D-dimer PT 13.8 Seconds (9.4-12.1) H 10/06/17 07:52 - Attending Attestation Plan MRCP. I examined this patient and my medical decision-making was reviewed with the Resident Physician. I agree with the documented findings, disposition and treatment plan as described except to the extent set forth below.
--- NOTE | 2017-10-06 10:35 | Internal Med History&Physical ---
Date of Encounter: 10/06/17 Time of Encounter: 10:29 Assessment and Plan (1) Chest pain Current visit: Yes Status: Acute Chest pain is atypical, she was admitted today May 2017 for similar episode. She had a negative stress test and a normal echocardiogram, EF 65%. We will follow up with 2 more troponin to rule out acute NV. Qualifiers: Chest pain type: other chest pain Qualified Code(s): R07.89 - Other chest pain; R07.8 - Other chest pain (2) HTN (hypertension) Current visit: Yes Status: Chronic Qualifiers: Hypertension type: essential hypertension Qualified Code(s): I10 - Essential (primary) hypertension (3) GERD (gastroesophageal reflux disease) Current visit: Yes Status: Chronic Continue home medication Qualifiers: Esophagitis presence: esophagitis presence not specified Qualified Code(s) : K21.9 - Gastro-esophageal reflux disease without esophagitis (4) Epigastric abdominal pain Current visit: Yes Status: Acute Patient has on and off epigastric pain for 2 weeks, ultrasound shows cholelithiasis, CBD was dilated. GI was consult in the emergency room. will order MRCP. Internal Medicine - H&P: HPI Chief complaint: chest pain Admitted From: Home Plans for Post Hospital Care: Home History of present illness: Ms. De Guzman is a 62 year old female who has history of hypertension anxiety presented to emergency room for epigastric pain for few weeks. Patient states that she has on and off epigastric pain, it is burning, sharp, some time pressure, on and off, radiating to bilateral lower chest for few weeks, but over last 24 hours the pain has been progressing Worse, become more frequent, every 2 hours, she could not fall asleep whenever she woke up by the pain, it was 8 out of 10, last for 15-20 minutes, burning sensation denies shortness of breasts no dizziness no palpation. ,In ER, she she had unremarkable lab results negative troponin, normal LFTs normal lipase. Negative chest x-ray, right upper quadrant ultrasound showed cholelithiasis without evidence of acute cholecystitis. Common bile duct measures 0.9 cm without intraductal abnormality. GI was consulted admitted a commander MRCP. Patient is admitted for chest pain r/o NV and gallstone Past Med Surg Social Fam HX - Past Medical History Medical history: hypertension Psychiatric history: anxiety - Past Surgical History Surgical History: - Social History Smoking Status: Former smoker Alcohol use: none Drug use: none - Family History Father Living Status: Hx Family Cardiac Disorders: Yes (CABG) Hx Family Respiratory Disorders: No Hx Family Cancer: Yes (Prostate, lung, bone, colon) Hx Family GI Disorders: No Hx Family Endocrine Disorder: No Hx Family Neuromuscular Disorders: No Hx Family Neurologic Disorders: No Hx Family HEENT Disorders: No Hx Family Autoimmune Disorders: No Mother Family Member Ethnicity: Non- Living Status: Still Living Hx Family Cardiac Disorders: Yes (NV, Triple bypass) Hx Family Cancer: Yes (Breast) Brother Family Member Ethnicity: Non- Living Status: Still Living Sister Family Member Ethnicity: Non- Living Status: Hx Family Cardiac Disorders: Yes (Heart defect) Internal Medicine - H&P: Meds Aspirin 81 mg PO DAILY 05/17/17 [History] LORazepam [Ativan] 0.5 mg PO HS PRN 05/17/17 [History] Losartan Potassium [Cozaar] 50 mg PO DAILY 05/17/17 [History] Metoprolol XL (24 HR) Succ [Toprol Xl] 100 mg PO DAILY 05/17/17 [History] Ranitidine HCl [Heartburn Relief] 150 mg PO 3XW 05/17/17 [History] Sertraline [Zoloft] 50 mg PO DAILY 05/17/17 [History] hydroCHLOROthiazide [Hydrochlorothiazide] 25 mg PO DAILY 05/17/17 [History] 3 Allergy/AdvReac Type Severity Reaction Status Date / Time fluconazole [From Diflucan] Allergy See Verified 10/06/17 09:22 Comments sulfamethoxazole Allergy See Verified 10/06/17 09:22 [From Bactrim] Comments trimethoprim [From Bactrim] Allergy See Verified 10/06/17 09:22 Comments All Systems PM: A 10-system review of systems was performed and is negative for pertinent findings except as documented above in the HPI. - Constitutional Vitals: Temp Pulse Resp BP Pulse Ox 98.8 F 64 16 143/80 98 10/06/17 07:37 10/06/17 09:30 10/06/17 09:30 10/06/17 09:30 10/06/17 09:30 General appearance: Present: A&O X 3, morbidly obese, pleasant, obese Exam: CONSTITUTIONAL: Patient appears as an age appropriate female well developed, in no acute distress. EYES Clear sclerae, bilateral pupils are equal, reactive to light and accommodation. Extraocular movements are intact RESPIRATORY: No accessory muscle use, bilateral clear to auscultation, no wheezing, no crackles/rales. CARDIOVASCULAR: Regular heart rate, normal S1 and S2, no murmurs GASTROINTESTINAL: bowel sounds present, soft, no tenderness. No hepatosplenomegaly. No bilateral CVA tenderness MUSCULOSKELETAL: Joints in normal range of motion, no clubbing, no edema, no cyanosis. Bilateral peripheral pulses 2+ LYMPHATIC no lymphadenopathy in neck, groin and axilla bilaterally, no thyromegaly. NEUROLOGIC: CN II to XII are grossly intact, no focal neurological deficit. Deep tendon reflexes 2+ bilaterally. Normal light touch sensation to upper and lower extremity PSYCHIATRIC: Oriented x3, with good insight, mood is euthymic. No hallucinations or delusions. SKIN: Skin warm and dry, no rashes, no open wound. Internal Med - H&P Results - Labs CBC & Chem 7: 10/06/17 07:52 10/06/17 07:52 Labs: Short CBC 10/06/17 Range/Units 07:52 WBC 7.5 (4.3-11.1) K/mcL Hgb 13.5 (11.5-15.4) g/dL Hct 38.7 (35.3-44.9) % Plt Count 283 (140-400) K/mcL Neutrophils # 4.9 (1.6-8.9) K/mcL BMP 10/06/17 07:52 Sodium 131 L Potassium 3.8 Chloride 97 L Carbon Dioxide 25 BUN 13 Creatinine 0.75 Glucose 116 H Calcium 9.3 Cardiac Enzymes 10/06/17 Range/Units 07:52 Troponin I < 0.03 (< 0.04) ng/mL Liver Function 10/06/17 Range/Units 07:52 Total Bilirubin 0.6 (0.3-1.0) mg/dL Direct Bilirubin 0.1 (0.0-0.2) mg/dL AST 18 (13-39) Units/L ALT 20 (7-52) Units/L Alkaline Phosphatase 88 (34-104) Units/L Albumin 4.4 (3.5-5.7) g/dL - Impressions ITS Impressions Chest X-Ray 10/06/17 07:42 IMPRESSION: Minimal focal left basilar airspace disease likely representing atelectasis, though pneumonia cannot be excluded. D/ / Jalen Dick MD / Jalen Dick MD Interpreting Provider: aJlen Dick MD Gallbladder Ultrasound 10/06/17 07:57 IMPRESSION: Cholelithiasis without evidence for acute cholecystitis. If there is persistent clinical concern, consider nuclear medicine study. Distention of common bile duct measuring 0.9 cm without intraductal abnormality identified. Clinical and laboratory correlation suggested, and if there is concern for biliary obstruction, consider MRI/MRCP. Diffuse fatty infiltration of the liver. D/ / 10/06/2017 08:46:46 New Michel MD / debi Interpreting Provider: New Michel MD
[2017-10-06] MEDS ORDERED: *HR* LORazepam 0.5 MG TABLET PO PRN (10:40)
[2017-10-06] MEDS ORDERED: Naloxone 0.4 MG/ML INJ IVP PRN (10:46)
[2017-10-06] MEDS ORDERED: Famotidine 20 MG TABLET PO SCH (11:00)
[2017-10-07 05:20] LABS: Basophils # 0.1 K/mcL (0.0-0.2); Basophils % 0.5 %; Eosinophils # 0.2 K/mcL (0.0-0.6); Eosinophils % 2.5 %; Hematocrit 37.5 % (35.3-44.9); Hemoglobin 12.8 g/dL (11.5-15.4); Immature Granulocytes % 0.4 % (0-4); Lymphocytes # 2.8 K/mcL (0.6-4.6); Lymphocytes % 29.9 %; Mean Corpuscular HGB Conc 34.1 g/dL (31.6-35.5); Mean Corpuscular Hemoglobin 29.5 pg (28.0-33.3); Mean Corpuscular Volume 86.4 fL (83.0-100.0); Mean Platelet Volume 9.6 fL (9.4-12.4); Monocytes # 0.8 K/mcL (0.0-1.3); Monocytes % 8.9 %; Neutrophils # 5.3 K/mcL (1.6-8.9); Platelet Count 278 K/mcL (140-400); Red Blood Count 4.34 M/mcL (3.82-4.97); Red Cell Distribution Width 12.6 % (11.5-14.5); Segmented Neutrophils % 57.8 %
[2017-10-07 05:35] LABS: BUN/Creatinine Ratio 16 (6-26); Blood Urea Nitrogen 14 mg/dL (8-23); Calcium 9.3 mg/dL (8.6-10.3); Carbon Dioxide 30 mEq/L (23-29); Chloride 96 mEq/L (98-107); Chol/HDL Ratio 5.7 (0-4.9); Cholesterol 182 mg/dL (< 200); Glucose 111 mg/dL (70-105); HDL Cholesterol 32 mg/dL (40-59); LDL Cholesterol,Calculated 123 mg/dL (0-99); Osmolality,Calculated 275 (280-300); Potassium 4.1 mEq/L (3.5-5.1); Sodium 132 mEq/L (136-145); Triglycerides 133 mg/dL (< 150); eGFR For African Americans > 60 (> 60); eGFR For Non-African Americans > 60 (> 60)
[2017-10-07] MEDS: Aspirin 81 MG TAB.CHEW PO SCH (08:08)
[2017-10-07] MEDS: hydroCHLOROthiazide 25 MG TABLET PO SCH (08:08)
[2017-10-07] MEDS: Metoprolol XL (24 HR) Succ 50 MG TAB.ER.24H PO SCH (08:08)
--- NOTE | 2017-10-07 09:10 | Internal Med Progress Note ---
Date of Encounter: 10/07/17 Time of Encounter: 09:06 - Assessment and plan (1) Chest pain Current Visit: Yes Status: Acute Assessment and plan: Atypical chest pain. She was admitted on May 2017 for similar episode. She had a negative stres test and normal echocardiogram with EF of 65%. Troponin cycled yesterday and today have been negative. EKG unremarkable. Qualifiers: Chest pain type: other chest pain Qualified Code(s): R07.89 - Other chest pain; R07.8 - Other chest pain (2) Epigastric abdominal pain Current Visit: Yes Status: Acute Assessment and plan: Pt also describes epigastric abdominal pain for several weeks off and on. LFTs and lipase normal. Non-toxic appearing. RUQ ultrasound showed cholelithiasis without evidence of cholecystitis. CBD was 0.9 cm. GI was consulted and MRCP done showing ductal dilatation again without any filling defect and again noted cholelithiasis whithout cholecystitis. Discussed case with Dr. Cramer of GI and suggested Surgery consult. (3) GERD (gastroesophageal reflux disease) Current Visit: Yes Status: Chronic Assessment and plan: Continue Pepcid will add ppi Qualifiers: Esophagitis presence: esophagitis presence not specified Qualified Code(s) : K21.9 - Gastro-esophageal reflux disease without esophagitis (4) HTN (hypertension) Current Visit: Yes Status: Chronic Assessment and plan: Continue HCTZ, Toprol XL Qualifiers: Hypertension type: essential hypertension Qualified Code(s): I10 - Essential (primary) hypertension (5) DVT prophylaxis Current Visit: No Status: Acute - Subjective Interval history: No acute events overnight. Currently denies chest pain, abdominal, SOB, N/V, fevers. Eating breakfast. - Constitutional Vitals: Temp Pulse Resp BP Pulse Ox 98.0 F 80 15 117/66 98 10/07/17 07:00 10/07/17 07:00 10/07/17 07:00 10/07/17 07:00 10/07/17 07:00 General appearance: Present: A&O X 3, morbidly obese, pleasant, obese - Head Head exam: Present: atraumatic, normocephalic - Eye Eye exam: Present: PERRL, conjuntiva pink, sclera anicteric Pupils: Present: PERRL - Neck Neck exam general surgery: Present: supple, trachea midline. Absent: lymphadenopathy - Respiratory Respiratory exam: Present: CTAB. Absent: accessory muscle use, rales, rhonchi, wheezes - Cardiovascular Cardiovascular exam: Present: RRR, +S1, +S2. Absent: diastolic murmur, gallop, rubs, systolic murmur - GI/Abdominal GI/Abdominal exam: Present: normal bowel sounds, soft, no peritoneal signs. Absent: distended, tenderness - Extremities Exam Extremities exam: Present: warm, radial pulses palpable and symmetrical. Absent : calf tenderness, cyanotic, pedal edema - Neurological Exam Neurological exam: Present: CN II-XII intact, oriented X3, no focal deficits. Absent: pronater drift, facial droop, speech deficit - Skin Skin exam: Present: dry, intact Internal Medicine: Result - Labs CBC & Chem 7: 10/07/17 04:50 10/07/17 04:50 Labs: Short CBC 10/07/17 Range/Units 04:50 WBC 9.2 (4.3-11.1) K/mcL Hgb 12.8 (11.5-15.4) g/dL Hct 37.5 (35.3-44.9) % Plt Count 278 (140-400) K/mcL Neutrophils # 5.3 (1.6-8.9) K/mcL BMP 10/07/17 04:50 Sodium 132 L Potassium 4.1 Chloride 96 L Carbon Dioxide 30 H BUN 14 Creatinine 0.88 Glucose 111 H Calcium 9.3 Cardiac Enzymes 10/06/17 10/06/17 10/06/17 Range/Units 11:07 16:38 22:52 Troponin I < 0.03 < 0.03 < 0.03 (< 0.04) ng/mL - ABG Interpretation ABG results: PT/INR, D-dimer PT 13.8 Seconds (9.4-12.1) H 10/06/17 07:52 Consult Discharge Plan - Plan Referrals: Nimco Johnson CNP [Primary Care Provider] -
[2017-10-07] MEDS: Pantoprazole 40 MG VIAL IVP SCH (10:00)
[2017-10-07] MEDS ORDERED: Acetaminophen/Aspirin/Caffeine TABLET PO ONE (11:18)
--- NOTE | 2017-10-07 17:09 | General Surgery Consult Note ---
<Nemo Bhardwaj - Last Filed: 10/07/17 16:57> Date of Encounter: 10/07/17 Time of Encounter: 03:00 Assessment and Plan (1) Common bile duct dilation Current Visit: Yes Status: Acute MR of the abdomen on 10/06/2017 showed intrahepatic ductal dilatation and dilated common bile duct. No discrete filling defect is seen. Common bile duct is dilated measuring up to 8 mm. Multiple gallstones are seen. No surrounding pericholecystic fluid. Gallbladder is incompletely distended. No definite gallbladder wall thickening. Gallbladder ultrasound on 10/06/2017 showed cholelithiasis without evidence for acute cholecystitis. Distention of common bile duct measuring 0.9 cm without intraductal abnormality identified. Labs are unremarkable show no leukocytosis. Patient is afebrile and appears in no acute distress. Plan: Plan for surgical intervention within [address] Katz ( laparoscopic cholecystectomy). Continue IV protonix Full liquid diet without anything fatty until midnight NPO at midnight Start IVF at 100mls/hr at midnight Continue to monitor the patient closely (2) Cholelithiasis Current Visit: Yes Status: Acute MR the abdomen and gallbladder ultrasound on 10/06/2017 shows cholelithiasis without evidence for acute cholecystitis.Distention of common bile duct measuring 0.9 cm without intraductal abnormality identified. Plan for surgical intervention within 24 to 48 hours. See plan as above Qualifiers: Qualified Code(s): K80.20 - Calculus of gallbladder without cholecystitis without obstruction (3) Atypical chest pain Current Visit: Yes Status: Acute Atypical chest pain with similar episode in May 2017. Initial troponin was was negative and repeat troponin was also negative. EKG unremarkable. Patient had a negative stress test and a normal echocardiogram with EF of 65%. Atypical chest pain may be secondary to gallbladder pathology versus cardiac pathology. Management per primary team. History of Present Illness Consult date: 10/07/17 Reason for consult: gallstones History of present illness: Ms. De Guzman is a 62 year old female who has history of hypertension who presented to emergency room complaining of epigastric pain for few weeks. Patient describes the epigastric pain as an intermittent, burning, sharp, and radiating across her bilateral breasts for few weeks, but progressively worsens over the last 24 hours with the pain becoming more frequent and lasting for 15- 20 minutes. Evaluation in the ER included unremarkable lab results including negative troponin, normal LFTs, normal lipase. Negative chest x-ray, right upper quadrant ultrasound showed cholelithiasis without evidence of acute cholecystitis. Common bile duct measures 0.9 cm without intraductal abnormality. GI was consulted and MRCP showed ductal dilation. Patient was admitted for chest pain r/o PR and gallstone. Surgery was consulted for further recommendations for cholelithiasis without cholecystitis according to findings on the MRCP and right upper quadrant ultrasound. Patient currently denies any nausea, vomiting, diarrhea, and blood in her stools. The patient admits her last bowel movement was this morning and describes it as soft, formed, and non- bloody. The patient is currently tolerating her diet without any nausea, vomiting, or any difficulty. The patient denies any abdominal pain at this time. The patient admits sternal chest pain that radiates across her right breast. She describes the pain as a constant, dull and achy pain. The patient admits intermittent epigastric pain that also radiates across her right breast. She describes epigastric pain as a burning sensation similar to her previous heart cheung. With findings on the MRCP and ultrasound and with the atypical presentation of epigastric pain that radiates across the right chest, patient is recommended to have a cholecystectomy. Surgical history includes a C- section in 1977. The patient denies any fever, headaches, vision changes, near syncope, shortness of breath, difficulty breathing, or any weaknesses at this time. Past Med Surg Social Fam HX - Past Medical History Medical history: hypertension Psychiatric history: anxiety - Past Surgical History Surgical History: - Social History Smoking Status: Former smoker Smokeless Tobacco Status: No Alcohol use: none Drug use: none - Family History Father Living Status: Hx Family Cardiac Disorders: Yes (CABG) Hx Family Respiratory Disorders: No Hx Family Cancer: Yes (Prostate, lung, bone, colon) Hx Family GI Disorders: No Hx Family Endocrine Disorder: No Hx Family Neuromuscular Disorders: No Hx Family Neurologic Disorders: No Hx Family HEENT Disorders: No Hx Family Autoimmune Disorders: No Mother Family Member Ethnicity: Non- Living Status: Still Living Hx Family Cardiac Disorders: Yes (PR, Triple bypass) Hx Family Cancer: Yes (Breast) Brother Family Member Ethnicity: Non- Living Status: Still Living Sister Family Member Ethnicity: Non- Living Status: Hx Family Cardiac Disorders: Yes (Heart defect) Medications and Allergies Aspirin 81 mg PO DAILY 05/17/17 [History] LORazepam [Ativan] 0.5 mg PO HS PRN 05/17/17 [History] Losartan Potassium [Cozaar] 50 mg PO DAILY 05/17/17 [History] Metoprolol XL (24 HR) Succ [Toprol Xl] 100 mg PO DAILY 05/17/17 [History] Ranitidine HCl [Heartburn Relief] 150 mg PO 3XW 05/17/17 [History] Sertraline [Zoloft] 50 mg PO DAILY 05/17/17 [History] hydroCHLOROthiazide [Hydrochlorothiazide] 25 mg PO DAILY 05/17/17 [History] 3 Allergy/AdvReac Type Severity Reaction Status Date / Time fluconazole [From Diflucan] Allergy See Verified 10/06/17 09:22 Comments sulfamethoxazole Allergy See Verified 10/06/17 09:22 [From Bactrim] Comments trimethoprim [From Bactrim] Allergy See Verified 10/06/17 09:22 Comments Review of Systems All systems PM: The remainder of the systems were reviewed and are negative - Constitutional as per HPI General Surgery Exam Initial Vital Signs Temp Pulse Resp BP Pulse Ox 98.8 F 69 16 140/83 99 10/06/17 07:37 10/06/17 07:37 10/06/17 07:37 10/06/17 07:37 10/06/17 07:37 - General physical appearance well developed, well nourished, no distress - Eyes PERRL, normal ocular movement - ENT normal mucosa - Neck trachea midline - Respiratory normal expansion, normal respiratory effort, clear to auscultation - Cardiovascular Cardiovascular exam: Present: RRR, no murmurs/rubs/gallops - Abdomen Abdomen general surgery: Present: bowel sounds present, soft, tender ( Tenderness to palpation in the far right upper quadrant). Absent: distended, guarding, rebound, rigid Abdominal Tenderness: Present: RUQ - Integumentary Integumentary general surgery: Present: warm and dry, no abnormal pigmentation - Neurologic Present: CN 2-12 grossly intact - Musculoskeletal Present: normal gait (Prior to exam, patient was aniline the hallway without any difficulty accompanied by her .) - Psychiatric Psychiatric general surgery: Present: A&Ox3, appropriate, speech is normal Exam Initial Vital Signs Temp Pulse Resp BP Pulse Ox 98.8 F 69 16 140/83 99 10/06/17 07:37 10/06/17 07:37 10/06/17 07:37 10/06/17 07:37 10/06/17 07:37 Results - Labs 10/07/17 04:50 10/07/17 04:50 Abnormal lab results PT 13.8 Seconds (9.4-12.1) H 10/06/17 07:52 Sodium 132 mEq/L (136-145) L 10/07/17 04:50 Chloride 96 mEq/L (98-107) L 10/07/17 04:50 Carbon Dioxide 30 mEq/L (23-29) H 10/07/17 04:50 Glucose 111 mg/dL (70-105) H 10/07/17 04:50 Calculated Osmolality 275 (280-300) L 10/07/17 04:50 LDL Cholesterol, Calc 123 mg/dL (0-99) H 10/07/17 04:50 HDL Cholesterol 32 mg/dL (40-59) L 10/07/17 04:50 Cholesterol/HDL Ratio 5.7 (0-4.9) H 10/07/17 04:50 Diabetes panel 10/07/17 Range/Units 04:50 Sodium 132 L (136-145) mEq/L Potassium 4.1 (3.5-5.1) mEq/L Chloride 96 L (98-107) mEq/L Carbon Dioxide 30 H (23-29) mEq/L BUN 14 (8-23) mg/dL Creatinine 0.88 (0.60-1.20) mg/dL Glucose 111 H (70-105) mg/dL Calcium 9.3 (8.6-10.3) mg/dL Triglycerides 133 (< 150) mg/dL HDL Cholesterol 32 L (40-59) mg/dL Calcium panel 10/07/17 Range/Units 04:50 Calcium 9.3 (8.6-10.3) mg/dL Pituitary panel 10/07/17 Range/Units 04:50 Sodium 132 L (136-145) mEq/L Potassium 4.1 (3.5-5.1) mEq/L Chloride 96 L (98-107) mEq/L Carbon Dioxide 30 H (23-29) mEq/L BUN 14 (8-23) mg/dL Creatinine 0.88 (0.60-1.20) mg/dL Glucose 111 H (70-105) mg/dL Calcium 9.3 (8.6-10.3) mg/dL Adrenal panel 10/07/17 Range/Units 04:50 Sodium 132 L (136-145) mEq/L Potassium 4.1 (3.5-5.1) mEq/L Chloride 96 L (98-107) mEq/L Carbon Dioxide 30 H (23-29) mEq/L BUN 14 (8-23) mg/dL Creatinine 0.88 (0.60-1.20) mg/dL Glucose 111 H (70-105) mg/dL Calcium 9.3 (8.6-10.3) mg/dL All other labs normal. Consult Discharge Plan - Plan Referrals: Nimco Johnson CNP [Primary Care Provider] - <Say Katz - Last Filed: 10/07/17 17:38> Date of Encounter: 10/07/17 Review of Systems All systems PM: The remainder of the systems were reviewed and are negative General Surgery Exam Initial Vital Signs Temp Pulse Resp BP Pulse Ox 98.8 F 69 16 140/83 99 10/06/17 07:37 10/06/17 07:37 10/06/17 07:37 10/06/17 07:37 10/06/17 07:37 Exam Initial Vital Signs Temp Pulse Resp BP Pulse Ox 98.8 F 69 16 140/83 99 10/06/17 07:37 10/06/17 07:37 10/06/17 07:37 10/06/17 07:37 10/06/17 07:37 Results - Labs 10/07/17 04:50 10/07/17 04:50 Abnormal lab results PT 13.8 Seconds (9.4-12.1) H 10/06/17 07:52 Sodium 132 mEq/L (136-145) L 10/07/17 04:50 Chloride 96 mEq/L (98-107) L 10/07/17 04:50 Carbon Dioxide 30 mEq/L (23-29) H 10/07/17 04:50 Glucose 111 mg/dL (70-105) H 10/07/17 04:50 Calculated Osmolality 275 (280-300) L 10/07/17 04:50 LDL Cholesterol, Calc 123 mg/dL (0-99) H 10/07/17 04:50 HDL Cholesterol 32 mg/dL (40-59) L 10/07/17 04:50 Cholesterol/HDL Ratio 5.7 (0-4.9) H 10/07/17 04:50 Diabetes panel 10/07/17 Range/Units 04:50 Sodium 132 L (136-145) mEq/L Potassium 4.1 (3.5-5.1) mEq/L Chloride 96 L (98-107) mEq/L Carbon Dioxide 30 H (23-29) mEq/L BUN 14 (8-23) mg/dL Creatinine 0.88 (0.60-1.20) mg/dL Glucose 111 H (70-105) mg/dL Calcium 9.3 (8.6-10.3) mg/dL Triglycerides 133 (< 150) mg/dL HDL Cholesterol 32 L (40-59) mg/dL Calcium panel 10/07/17 Range/Units 04:50 Calcium 9.3 (8.6-10.3) mg/dL Pituitary panel 10/07/17 Range/Units 04:50 Sodium 132 L (136-145) mEq/L Potassium 4.1 (3.5-5.1) mEq/L Chloride 96 L (98-107) mEq/L Carbon Dioxide 30 H (23-29) mEq/L BUN 14 (8-23) mg/dL Creatinine 0.88 (0.60-1.20) mg/dL Glucose 111 H (70-105) mg/dL Calcium 9.3 (8.6-10.3) mg/dL Adrenal panel 10/07/17 Range/Units 04:50 Sodium 132 L (136-145) mEq/L Potassium 4.1 (3.5-5.1) mEq/L Chloride 96 L (98-107) mEq/L Carbon Dioxide 30 H (23-29) mEq/L BUN 14 (8-23) mg/dL Creatinine 0.88 (0.60-1.20) mg/dL Glucose 111 H (70-105) mg/dL Calcium 9.3 (8.6-10.3) mg/dL All other labs normal. - Attending Attestation I examined this patient and my medical decision-making was reviewed with the Resident Physician. I agree with the documented findings, disposition and treatment plan as described except to the extent set forth below. I reviewed the above assessment and evaluation with the resident and agree with the above plan. Patient has some atypical central chest pain radiating to the bilateral sides but now is more on to the right side. She is had a cardiac evaluation has been negative. She states currently that the pain is still present and on physical examination she does have some mild tenderness on the right upper quadrant/flank area. I personally reviewed the radial images were reviewed those studies with the patient. Due to the dilation of the common bile duct of 9 mm and gallstones and her atypical chest pain symptoms which may be related to these findings I do think a laparoscopic cholecystectomy with intraoperative cholangiogram would be appropriate. Risks and benefits have been discussed with the patient and we will at this procedure on for tomorrow.
[2017-10-07] MEDS: *HR* Heparin 5,000 UNIT/ML VIAL SQ SCH (17:32)
[2017-10-07] MEDS ORDERED: 0.9 % Sodium Chloride 1,000 ML IVC SCH (23:00)
[2017-10-08] MEDS: *HR* Heparin 5,000 UNIT/ML VIAL SQ SCH (05:17)
--- NOTE | 2017-10-08 07:40 | Anesthesia Evaluation PreOp ---
Date of Encounter: 10/08/17 Time of Encounter: 07:40 - Past History Planned Operation: Lap Cholecystectomy Cardiac History: HTN, Hyperlipidemia Pulmonary History: Former smoker CORPORATE RISK ANALYST History: Denies Any Significant HX Other Medical History: GERD Anesthesia History: No Prior Anesthetic Complications : No Alcohol Use: none Drug use: none Medications and Allergies Aspirin 81 mg PO DAILY 05/17/17 [History] LORazepam [Ativan] 0.5 mg PO HS PRN 05/17/17 [History] Losartan Potassium [Cozaar] 50 mg PO DAILY 05/17/17 [History] Metoprolol XL (24 HR) Succ [Toprol Xl] 100 mg PO DAILY 05/17/17 [History] Ranitidine HCl [Heartburn Relief] 150 mg PO 3XW 05/17/17 [History] Sertraline [Zoloft] 50 mg PO DAILY 05/17/17 [History] hydroCHLOROthiazide [Hydrochlorothiazide] 25 mg PO DAILY 05/17/17 [History] 3 Allergy/AdvReac Type Severity Reaction Status Date / Time fluconazole [From Diflucan] Allergy See Verified 10/06/17 09:22 Comments sulfamethoxazole Allergy See Verified 10/06/17 09:22 [From Bactrim] Comments trimethoprim [From Bactrim] Allergy See Verified 10/06/17 09:22 Comments - Meds/Allergy Pre-op Review Medications Reviewed: Yes Allergies Reviewed: Yes Beta Blockers on Current Med List: Yes (on metoprolol given yesterday ) Anesthesia Results - Labs 10/07/17 04:50 10/07/17 04:50 Laboratory Tests 10/06/17 10/06/17 10/07/17 07:52 22:52 04:50 Hgb 12.8 Hct 37.5 Plt Count 278 PT 13.8 H INR 1.3 APTT 32.8 Sodium Potassium BUN Creatinine Troponin I < 0.03 10/07/17 04:50 Hgb Hct Plt Count PT INR APTT Sodium 132 L Potassium 4.1 BUN 14 Creatinine 0.88 Troponin I - Imaging EKG: report reviewed (SR) Additional studies: Stress test last year negative, EF 60% Anesthesia Exam Vital Signs/O2 Sat/Glucose, Most Current Temp Pulse Resp BP Pulse Ox 10/08/17 06:37 97.8 F 71 15 128/75 99 10/08/17 03:52 98.2 F 77 14 109/64 97 Height: 5'2 Weight: 187 lbs NPO (# of Hours): MN Pain Scale: 0 - HEENT Pupil (Motor): Pupils equal, EOMI Mallampati: II Oral Opening: Less than or equal to 3 - CORPORATE RISK ANALYST LOC: Oriented CORPORATE RISK ANALYST Motor: Normal RUE, Normal LUE, Normal RLE, Normal LLE, Normal Face CORPORATE RISK ANALYST Sensory: Normal: RUE, LUE, RLE, LLE, Face - Cardiac Rhythm: Regular Murmur: None JVD: No Carotid Bruit: No - Pulmonary Breath Sounds: bilateral Clear Respiratory Effort: Symmetrical Anesthesia Assess/Plan ASA Score: 2 Modified Navin Scale for Level of Consciousness: Cooperative, oriented, and tranquil Anesthetic Plan: General, Regional Monitoring Plan: Standard Monitors Recovery Plan: PACU (Discussed GA and RA, agrees to proceed)
[2017-10-08] MEDS: Aspirin 81 MG TAB.CHEW PO SCH (07:42)
[2017-10-08] MEDS: hydroCHLOROthiazide 25 MG TABLET PO SCH (07:50)
[2017-10-08] MEDS: Pantoprazole 40 MG VIAL IVP SCH (07:50)
[2017-10-08] MEDS: Metoprolol XL (24 HR) Succ 50 MG TAB.ER.24H PO SCH (07:50)
[2017-10-08 08:23] LABS: Basophils % 0.6 %; Eosinophils # 0.2 K/mcL (0.0-0.6); Eosinophils % 2.2 %; Hematocrit 35.9 % (35.3-44.9); Hemoglobin 12.4 g/dL (11.5-15.4); Immature Granulocytes % 0.3 % (0-4); Lymphocytes # 2.2 K/mcL (0.6-4.6); Mean Corpuscular HGB Conc 34.5 g/dL (31.6-35.5); Mean Corpuscular Hemoglobin 29.5 pg (28.0-33.3); Mean Corpuscular Volume 85.5 fL (83.0-100.0); Mean Platelet Volume 9.5 fL (9.4-12.4); Monocytes # 0.6 K/mcL (0.0-1.3); Platelet Count 241 K/mcL (140-400); Red Cell Distribution Width 12.6 % (11.5-14.5); Segmented Neutrophils % 56.9 %
[2017-10-08] MEDS ORDERED: Acetaminophen IV 1,000 MG/100 ML INFUS..BTL ONE (08:43)
[2017-10-08] MEDS ORDERED: Famotidine 20 MG/2 ML VIAL ONE (08:43)
[2017-10-08] MEDS ORDERED: Bupivacaine/EPI 1:200k 0.5%PF 10 ML VIAL ONE (08:49)
[2017-10-08] MEDS ORDERED: Lidocaine -MPF 2% 2 ML VIAL ONE (08:52)
[2017-10-08] MEDS ORDERED: *HR* FentaNYL (PF) 100 MCG/2 ML VIAL ONE (08:52)
[2017-10-08] MEDS ORDERED: Dexamethasone 4 MG/ML VIAL ONE (08:52)
[2017-10-08] MEDS ORDERED: *HR* Propofol 200 MG/20 ML VIAL IVP ONE (08:52)
[2017-10-08] MEDS ORDERED: Ondansetron 4 MG/2 ML VIAL ONE (08:52)
[2017-10-08] MEDS ORDERED: *HR* Rocuronium Bromide 50 MG/5 ML VIAL ONE (08:52)
[2017-10-08] MEDS ORDERED: *HR* Morphine 10 MG/ML VIAL ONE (08:52)
[2017-10-08 08:54] LABS: BUN/Creatinine Ratio 15 (6-26); Blood Urea Nitrogen 11 mg/dL (8-23); Carbon Dioxide 26 mEq/L (23-29); Chloride 98 mEq/L (98-107); Glucose 105 mg/dL (70-105); Osmolality,Calculated 274 (280-300); Potassium 3.8 mEq/L (3.5-5.1); Sodium 132 mEq/L (136-145); eGFR For African Americans > 60 (> 60); eGFR For Non-African Americans > 60 (> 60)
[2017-10-08] MEDS ORDERED: Lidocaine -MPF 4% 5 ML AMPUL ONE (08:55)
[2017-10-08] MEDS ORDERED: Isovue-300 50 ML VIAL IVP ONE (09:09)
[2017-10-08] MEDS ORDERED: CefOXitin 2,000 MG VIAL ONE (09:17)
[2017-10-08] MEDS ORDERED: cefOXitin 2,000 MG in Water for inj. (sterile) 10 ML IVP ONE (09:30)
[2017-10-08] MEDS ORDERED: *HR* PHENYLEPHRINE 1,000 MCG/10 ML SYRINGE IVP ONE (09:42)
[2017-10-08] MEDS ORDERED: Ketorolac 30 MG/ML VIAL ONE (09:46)
[2017-10-08] MEDS ORDERED: Neostigmine Methylsulfate 3 MG/3 ML SYRINGE ONE (10:08)
--- NOTE | 2017-10-08 10:30 | Operative Note ---
Date of procedure: 10/08/17 Pre-op diagnosis: Atypical chest pain, Dilated CBD with gallstones Post-op diagnosis: same Procedure: Laparoscopic cholecystectomy with IOC Anesthesia: ERVIN Surgeon: Say Katz Was there an assistant professor of theater present: No Loss Prevention Manager Other: DEBBY Miller Estimated blood loss (cc): 12 Specimen: gallbladder and contents Condition: stable Disposition: PACU Procedure in Detail: Date of surgery: 10/08/17 After properly identifying the patient, the patient was brought to the operating room and placed in the supine position. After proper IV sedation was achieved followed by general endotracheal intubation, the patient's abdomen was prepped and draped in a normal sterile fashion. A timeout was performed noting the patient's name and type of procedure to be performed. 0.5% Marcaine was used to infiltrate the epidermis, dermis, and subcutaneous tissue in the supraumbilical region followed by making an incision with an 11 blade scalpel down to the level of the rectus fascia. The rectus fascia was incised and the abdomen was entered and a 12 mm port was placed through the incision. A laparoscopic camera was placed through the port which showed no injury to the intra-abdominal organs upon entry. A subxiphoid 5 mm port and a right subcostal margin 5 mm port were placed under direct camera visualization after each area was first infiltrated with 0.5% Marcaine. The patient was placed in a reverse Trendelenburg position. The right upper quadrant was examined and the gallbladder was noted to be somewhat protracted and chronically inflamed. The gallbladder was grasped nontraumatic graspers and retracted superiorly. The cystic duct and cystic artery were then isolated and the nontraumatic grasper was exchanged for a Jimenez grasper. A cholangiogram catheter was introduced of the side-port of the Jimenez grasper and the cystic duct was reexamined. There was a large stone noted at the neck of the gallbladder so the decision was made to make an incision just proximal to the cystic ducts down followed by placement of the catheter through this opening and securing of the catheter with a laparoscopic clip. Intraoperative cholangiogram was performed which demonstrated flow into the common bile duct and into the small bowel without any filling defects. Retrograde filling of the hepatic radicles were identified with again no evidence of filling defect. The cholangiogram catheter was then removed and the cystic duct was formally clipped laparoscopic clips and incised with laparoscopic scissors. The cystic artery was identified, clipped with laparoscopic clips, and incised laparoscopic scissors. The gallbladder was then dissected away from the gallbladder fossa with Bovie cauterization while Bovie cauterization was used to maintain hemostasis. Once the gallbladder was dissected free it was removed from the abdomen via an Endobag. Reinspection of the right upper quadrant demonstrated maintenance of hemostasis and right upper quadrant was irrigated with normal saline solution until the effluent was clear. All ports were then removed from the abdomen after the abdomen was desufflated. The rectus fascia for the supraumbilical incision was reapproximated with a figure of eight 0 Vicryl suture. The subcutaneous tissue was reapproximated with interrupted 3-0 Vicryl sutures. The epidermal and dermal layers for the remaining incisions were closed with 4-0 Monocryl sutures. Needle, sponge, and instrument counts were correct 2 and the incisions were covered with Steri- Strips and Band-Aids. The patient was aroused from IV sedation, extubated in the operating room without complication, and transported to the recovery room in stable condition.
--- NOTE | 2017-10-08 10:31 | Event Note ---
Date of Encounter: 10/08/17 Time of Encounter: 10:30 Laparoscopic cholecystectomy with IOC performed without difficulity. No CBD stones. From a surgical standpoint it is ok for the patient to be discharged home. We will make certain that she has a follow up appt in 2-3 weeks. No heavy lifting greater than 15lbs for two weeks. May remove Band-Aids in two days. May shower in two days.
--- NOTE | 2017-10-08 11:13 | Anesthesia Evaluation Post Op ---
Date of Encounter: 10/08/17 Time of Encounter: 11:10 - Vital Signs Vital Signs: Vital Signs/O2 Sat/Glucose, Most Current Temp Pulse Resp BP Pulse Ox 10/08/17 11:03 97.4 F L 70 16 143/64 100 10/08/17 10:53 77 16 149/60 99 10/08/17 10:43 71 20 154/66 100 10/08/17 10:33 98 F 88 16 152/89 93 - Lungs Lungs: Clear Ascult./Percussion - Airway Airway: Non-obstructed - Cardiovascular Regular Rate - Mental Status Mental Status: Alert & Oriented, Answers Appropriately - Pain Pain Scale: 1 - Nausea Vomiting Nausea Vomiting: Not Present - Hydration Hydration: Ice chips - Discharge PostOp Status: Transfer Patient to floor
[2017-10-08] MEDS ORDERED: Naloxone 0.4 MG/ML INJ IVP PRN (11:20)
[2017-10-08] MEDS ORDERED: 0.9 % Sodium Chloride 1,000 ML IVC SCH (11:20)
[2017-10-08] MEDS ORDERED: *HR* OxyCODONE/APAP 7.5/325 TABLET PO PRN (11:20)
--- NOTE | 2017-10-08 14:59 | Discharge Summary ---
Orders not resulted at time of discharge: Pending orders 10/08/17 10:24 Surgical Pathology [PTH] Routine 10/09/17 04:00 BMP [Basic Metabolic Panel] AM 0400 Complete Blood Count [HEME] AM 0400 10/10/17 04:00 BMP [Basic Metabolic Panel] AM 0400 Complete Blood Count [HEME] AM 0400 Date of Encounter: 10/08/17 Time of Encounter: 14:56 - Discharge Diagnosis (1) Chest pain Priority: Primary Status: Resolved Qualifiers: Chest pain type: other chest pain Qualified Code(s): R07.89 - Other chest pain; R07.8 - Other chest pain (2) Epigastric abdominal pain Priority: Secondary Status: Acute (3) GERD (gastroesophageal reflux disease) Priority: Secondary Status: Chronic Qualifiers: Esophagitis presence: esophagitis presence not specified Qualified Code(s) : K21.9 - Gastro-esophageal reflux disease without esophagitis (4) HTN (hypertension) Priority: Secondary Status: Chronic Qualifiers: Hypertension type: essential hypertension Qualified Code(s): I10 - Essential (primary) hypertension (5) DVT prophylaxis Priority: Secondary Status: Acute Hospital course: Ms. De Guzman is a 62 year old female who has history of hypertension anxiety presented to emergency room for epigastric pain for few weeks. Patient states that she has on and off epigastric pain, it is burning, sharp, some time pressure, on and off, radiating to bilateral lower chest for few weeks, but over last 24 hours the pain has been progressing Worse, become more frequent, every 2 hours, she could not fall asleep whenever she woke up by the pain, it was 8 out of 10, last for 15-20 minutes, burning sensation denies shortness of breasts no dizziness no palpation. ,In ER, she she had unremarkable lab results negative troponin, normal LFTs normal lipase. Negative chest x-ray, right upper quadrant ultrasound showed cholelithiasis without evidence of acute cholecystitis. Common bile duct measures 0.9 cm without intraductal abnormality. GI was consulted admitted a commander MRCP. Patient is admitted for chest pain r/o PR and gallstone. Troponin were cycled and negative. Her chest pain resolved. She a normal echocardiogram with EF 65% and a stress test in May 2017 negative. Likely this was not cardiac i nature. She had a RUQ ultrasound done for that showed cholylithiasis and dilated CBD. GI was consulted and an MRCP was done showing ductal dilation without filling defect and no cholecystitis. Surgery was consulted and patient had lap cholecystectomy and tolerated procedure without issue. She was discharged home in stable condition. - Time Spent with Patient Total time spent providing and/or coordinating discharge services: - Discharge Medications Prescriptions: OxyCODONE/APAP 7.5/325 [Percocet 7.5/325 MG] 1 each PO Q8H PRN 5 Days #15 tablet PRN Reason: Pain Home Medications: Aspirin 81 mg PO DAILY 05/17/17 [History] LORazepam [Ativan] 0.5 mg PO HS PRN 05/17/17 [History] Losartan Potassium [Cozaar] 50 mg PO DAILY 05/17/17 [History] Metoprolol XL (24 HR) Succ [Toprol Xl] 100 mg PO DAILY 05/17/17 [History] Ranitidine HCl [Heartburn Relief] 150 mg PO 3XW 05/17/17 [History] Sertraline [Zoloft] 50 mg PO DAILY 05/17/17 [History] hydroCHLOROthiazide [Hydrochlorothiazide] 25 mg PO DAILY 05/17/17 [History] OxyCODONE/APAP 7.5/325 [Percocet 7.5/325 MG] 1 each PO Q8H PRN 5 Days #15 tablet 10/08/17 [Rx] Allergies/Adverse Reactions: 3 Allergy/AdvReac Type Severity Reaction Status Date / Time fluconazole [From Diflucan] Allergy See Verified 10/06/17 09:22 Comments sulfamethoxazole Allergy See Verified 10/06/17 09:22 [From Bactrim] Comments trimethoprim [From Bactrim] Allergy See Verified 10/06/17 09:22 Comments Date of admission: 10/06/17 11:06 Primary care physician: Nimco Johnson CNP Consults: 10/07/17 09:05 Consult to Surgery [CONS] Routine Consulting Provider: [facility] Reason for Consult: RUQ pain, possible need for cholecystectomy Call Completed: Yes Discharging clinician: Mani Hunter - Constitutional Vitals: Temp Pulse Resp BP Pulse Ox 97.8 F 76 16 138/61 94 10/08/17 11:30 10/08/17 11:30 10/08/17 11:30 10/08/17 11:30 10/08/17 11:30 General appearance: Present: A&O X 3, morbidly obese, pleasant, obese - Head Head exam: Present: atraumatic, normocephalic - Eye Eye exam: Present: PERRL, conjuntiva pink, sclera anicteric Pupils: Present: PERRL - Neck Neck exam general surgery: Present: supple, trachea midline. Absent: lymphadenopathy - Respiratory Respiratory exam: Present: CTAB. Absent: accessory muscle use, rales, rhonchi, wheezes - Cardiovascular Cardiovascular exam: Present: RRR, +S1, +S2. Absent: diastolic murmur, gallop, rubs, systolic murmur - GI/Abdominal GI/Abdominal exam: Present: normal bowel sounds, soft, no peritoneal signs. Absent: distended, tenderness - Extremities Exam Extremities exam: Present: warm, radial pulses palpable and symmetrical. Absent : calf tenderness, cyanotic, pedal edema - Neurological Exam Neurological exam: Present: CN II-XII intact, oriented X3, no focal deficits. Absent: pronater drift, facial droop, speech deficit - Skin Skin exam: Present: dry, intact - Patient Status Disposition: Home, Self-Care Condition: Fair Functional capacity at discharge: independent ambulation Overall status at discharge: patient is progressing back to baseline - Discharge Instructions Follow Up With: Nimco Johnson CNP [Primary Care Provider] - - Diet and Activity Activity: return to work once cleared by your PCP/specialist Diet: advance to your usual diet - VTE Documentation of Mechanical Device: Intermittent pneumatic compression device
[2017-10-08 15:43] VITALS: BP 110/70
[2017-10-08] MEDS ORDERED: *HR* Heparin 5,000 UNIT/ML VIAL SQ SCH (18:00)
[2017-10-08] MEDS ORDERED: *HR* LORazepam 0.5 MG TABLET PO PRN (21:00)
[2017-10-09] MEDS ORDERED: Aspirin 81 MG TAB.CHEW PO SCH (09:00)
[2017-10-09] MEDS ORDERED: hydroCHLOROthiazide 25 MG TABLET PO SCH (09:00)
[2017-10-09] MEDS ORDERED: Pantoprazole 40 MG VIAL IVP SCH (09:00)
[2017-10-09] MEDS ORDERED: Famotidine 20 MG TABLET PO SCH (09:00)
[2017-10-09] MEDS ORDERED: Metoprolol XL (24 HR) Succ 50 MG TAB.ER.24H PO SCH (09:00)
--- NOTE | 2017-10-09 12:19 | Electrocardiograph Report ---
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
== END 2017-10-08 15:40 | disposition home or self-care (01) ==
LOC: EMEROO 07:33 → 3ANU 07:33
PROVIDERS: ADMIT Hospitalist; ATTEND Student in an Organized Health Care Education/Training Program